=== PATIENT | male | born 1965 | race American Indian/Alaskan Native ===

== ENCOUNTER 2017-02-25 08:37 | Inpatient (IN) | payer OTHER ==
[2017-02-25] MEDS ORDERED: Morphine 4 mg/ml ISec IVP STA (09:15)
--- NOTE | 2017-02-25 09:44 | ED PDOC ---
Arrival/HPI - General Chief Complaint: Lower Extremity Problem/Injury Time Seen by Provider: 02/25/17 09:04 Historian: Patient - History of Present Illness Narrative History of Present Illness (Text): 02/25/17 09:41 51yo male with PMHx of DVT present with complaint of severe right lower leg pain with fever x 2days. Patient states that he had ab abscess on his right lateral lower leg that drained few days ago and then pain started s/p. Reports Tmax of 104 last night. states he took Tylenol last night. He feels the pain is not related to his DVT, states his pain is localized to his lin area. He is currently on Elquis. Denies trauma, SOB, chest pain, diaphoresis, any other complaint. Past Medical History - Provider Review Nursing Documentation Reviewed: Yes - Tetanus Immunization Tetanus Immunization: Unknown - Cardiac Hx Cardiac Disorders: Yes Hx Hypertension: Yes Other/Comment: b/l lower extremity blood clots - Pulmonary Hx Respiratory Disorders: Yes (pe) Hx Pulmonary Embolism: Yes - Neurological Hx Neurological Disorder: No - HEENT Hx HEENT Disorder: No - Renal Hx Renal Disorder: No - Endocrine/Metabolic Hx Endocrine Disorders: Yes - Hematological/Oncological Hx Blood Disorders: Yes (dvt in the past.,pe in past) - Integumentary Hx Dermatological Disorder: No - Musculoskeletal/Rheumatological Hx Falls: No - Gastrointestinal Hx Gastrointestinal Disorders: No - Genitourinary/Gynecological Hx Genitourinary Disorders: No - Psychiatric Hx Psychophysiologic Disorder: No Hx Depression: No Hx Emotional Abuse: No Hx Physical Abuse: No Hx Substance Use: No - Surgical History Hx Vascular Surgery: Yes - Anesthesia Hx Anesthesia Reactions: No Hx Malignant Hyperthermia: No - Suicidal Assessment Feels Threatened In Home Enviroment: No Family/Social History - Physician Review Nursing Documentation Reviewed: Yes Family/Social History: Unknown Family HX Smoking Status: Former Smoker Hx Alcohol Use: No Hx Substance Use: No Hx Substance Use Treatment: No Allergies/Home Meds Allergies/Adverse Reactions: Allergies Penicillins Allergy (Verified 02/25/17 08:59) RASH Review of Systems - Physician Review All systems were reviewed & negative as marked: Yes - Review of Systems Constitutional: Normal Eyes: Normal ENT: Normal Respiratory: Normal Cardiovascular: Normal Gastrointestinal: Normal Genitourinary Male: Normal Musculoskeletal: Arthralgias (Right lower leg pain) Skin: Normal Neurological: Normal Endocrine: Normal Hemo/Lymphatic: Normal Psychiatric: Normal Physical Exam Vital Signs Reviewed: Yes Vital Signs Temp Pulse Resp BP Pulse Ox 02/25/17 13:31 89 18 131/75 98 02/25/17 11:35 99.4 F 98 H 18 133/79 98 02/25/17 08:58 100.4 F H 109 H 18 135/87 98 Temperature: Febrile Blood Pressure: Normal Pulse: Tachycardic Respiratory Rate: Normal Appearance: Positive for: Well-Appearing, Non-Toxic, Comfortable Pain Distress: None Mental Status: Positive for: Alert and Oriented X 3 - Systems Exam Head: Present: Atraumatic, Normocephalic Pupils: Present: PERRL Extroacular Muscles: Present: EOMI Conjunctiva: Present: Normal Mouth: Present: Moist Mucous Membranes Neck: Present: Normal Range of Motion Respiratory/Chest: Present: Clear to Auscultation, Good Air Exchange. No: Respiratory Distress, Accessory Muscle Use Cardiovascular: Present: Regular Rate and Rhythm, Normal S1, S2. No: Murmurs Abdomen: Present: Normal Bowel Sounds. No: Tenderness, Distention, Peritoneal Signs Back: Present: Normal Inspection Upper Extremity: Present: Normal Inspection. No: Cyanosis, Edema Lower Extremity: Present: Edema (3+ right lower leg), Tenderness (Right lin), Erythema (Right lin), Neurovascularly Intact, Other (Statis dermatitis of right lower leg noted). No: CALF TENDERNESS, Cyanosis, Deformity Neurological: Present: GCS=15, CN II-XII Intact, Speech Normal Skin: Present: Warm, Dry, Normal Color. No: Rashes Psychiatric: Present: Alert, Oriented x 3, Normal Insight, Normal Concentration Medical Decision Making ED Course and Treatment: 02/25/17 16:16 Pt presented for stated history. His Temp and HR improved while in ED. His doppler US showed completely occluded femoral vein, although pt is on Eloquis with IVC filter in place. His INR was 1.18. He will however require admission for heparin and possible surgical evacuation. Case was OLLIE Mercado. He accepted pt into his service. All result and plan was DW the pt and he agreed. - Lab Interpretations Lab Results: 02/25/17 09:25 02/25/17 09:25 Lab Results 02/25/17 10:30: PT 12.7 H, INR 1.18 H, APTT 28.1 02/25/17 09:25: Sodium 137, Potassium 3.9, Chloride 99, Carbon Dioxide 26, Anion Gap 16, BUN 13, Creatinine 1.3, Est GFR ( Amer) > 60, Est GFR (Non- Af Amer) 59, Random Glucose 104, Calcium 9.3, Total Bilirubin 1.4 H, AST 21, ALT 18, Alkaline Phosphatase 63, Total Protein 9.6 H, Albumin 4.5, Globulin 5.1 , Albumin/Globulin Ratio 0.9 L 02/25/17 09:25: WBC 8.6 D, RBC 4.64, Hgb 14.0, Hct 40.8 L, MCV 87.9, MCH 30.2, MCHC 34.3, RDW 13.3, Plt Count 97 L, MPV 10.8, Gran % 81.2 H, Lymph % (Auto) 12.7 L, Otero % (Auto) 6.0, Eos % (Auto) 0.0 L, Baso % (Auto) 0.1, Gran # 6.94 H , Lymph # 1.1 L, Otero # 0.5, Eos # 0.0, Baso # 0.01 - RAD Interpretation Radiology Orders: 02/25/17 09:14 DUPLEX LOWER EXTRM VEIN RIGHT [US] Stat - Medication Orders Current Medication Orders: Discontinued Medications Morphine Sulfate (Morphine) 4 mg IVP STAT STA Stop: 02/25/17 09:16 Last Admin: 02/25/17 09:23 Dose: 4 mg Disposition/Present on Arrival - Present on Arrival Any Indicators Present on Arrival: No History of DVT/PE: Yes History of Uncontrolled Diabetes: No Urinary Catheter: No History of Decub. Ulcer: No History Surgical Site Infection Following: None - Disposition Have Diagnosis and Disposition been Completed?: Yes Diagnosis: Deep venous thrombosis Disposition: HOSPITALIZED Disposition Time: 11:45 Patient Problems: Current Active Problems Problem Status Onset Deep venous thrombosis Acute Condition: GUARDED
[2017-02-25 09:59] LABS: ADD MANUAL DIFF? NO
[2017-02-25 10:00] LABS: BASO # 0.01 K/mm3 (0.0-2.0); BASO % 0.1 % (0.0-3.0); GRAN # 6.94 (1.4-6.5); GRAN % 81.2 % (50.0-68.0); HEMATOCRIT 40.8 % (42.0-52.0); LYMPH # 1.1 (1.2-3.4); LYMPH % 12.7 % (22.0-35.0); MEAN CELL VOLUME 87.9 fL (80.0-105.0); MEAN CORPUSCULAR HEMOGLOBIN 30.2 pg (25.0-35.0); MEAN CORPUSCULAR HGB CONC 34.3 g/dl (31.0-37.0); MEAN PLATELET VOLUME 10.8 fl (7.0-11.0); MONO # 0.5 (0.1-0.6); PLATELET COUNT 97 10^3/uL (120.0-450.0); RED CELL DISTRIBUTION WIDTH 13.3 % (11.5-14.5); WHITE BLOOD COUNT 8.6 10^3/ul (4.5-11.0)
[2017-02-25 10:14] LABS: ALB/GLOB RATIO 0.9 (1.1-1.8); ALKALINE PHOSPHATASE 63 U/L (38-133); ALT/SGPT 18 U/L (7-56); AST/SGOT 21 U/L (15-59); BILIRUBIN,TOTAL 1.4 mg/dL (0.2-1.3); BLOOD UREA NITROGEN 13 mg/dL (7-21); CALCIUM 9.3 mg/dL (8.4-10.5); CARBON DIOXIDE 26 mmol/L (21-33); CHLORIDE 99 mmol/L (98-107); GFR AFRICAN-AMERICAN > 60; GLUCOSE,RANDOM 104 mg/dL (70-110); POTASSIUM 3.9 mmol/L (3.6-5.0); SODIUM 137 mmol/L (132-148); TOTAL PROTEIN 9.6 g/dL (5.8-8.3)
[2017-02-25 11:08] LABS: INR 1.18 (0.93-1.08); PARTIAL THROMBOPLASTIN TIME 28.1 Seconds (23.7-30.8)
--- NOTE | 2017-02-25 11:25 | US ---
PROCEDURE: Right lower extremity venous US HISTORY: Leg pain and swelling. Evaluate for DVT. PHYSICIAN(S): Kenji Oliveira M.D. TECHNIQUE: Duplex sonography and color-flow Doppler with graded compression were used to evaluate the deep venous system of the right lower extremity. FINDINGS: There is adherent thrombus in the right common femoral vein. Occlusive thrombus is noted throughout the right femoral vein. There is adherent thrombus in the right popliteal vein. The visualized distal right external iliac vein is patent. IMPRESSION: 1. Extensive right lower extremity DVT as described above.
[2017-02-25 17:41] VITALS: BMI 32.0
[2017-02-25] MEDS ORDERED: Vancomycin 1gm in NS 250ml 1 GM/250 ML BAG IVPB STA (18:35)
[2017-02-25] MEDS: Enoxaparin 120 mg Syringe SC SCH (18:54)
[2017-02-25] MEDS: Sodium Chloride 0.9% 1,000 ML IV SCH (19:35)
[2017-02-25] MEDS: Morphine 2 mg/ml ISec IVP PRN (19:46)
--- NOTE | 2017-02-25 19:50 | CP.PCM.CON ---
History of Present Illness - History of Present Illness History of Present Illness: 51 M w/ PMHx pulmonary embolism, lupus anticoagulant, DVT, presents to the ED w / complaints of fevers and right lower extremity pain. Patient reports one week ago he noticed a "small pimple" on the side of his right leg, three days later it came into a head. Patient states abscess spontaneously ruptured when he was taking a hot shower. He reports taking his temperature at home with recordings of 104F (Tmax). Patient states he took Tylenol for the fever which brought his temperature down to about 102, after noticing his fevers were not improving and his leg becoming edematous the patient decided to come to ED. A lower extremity ultrasound was done which demonstrated an adherent thrombus in the right common femoral vein and occlusive thrombus in the right femoral vein as well as an adherent thrombus in the right popliteal vein. Patient's anterior tibial region was exquisitely tender to palpation, no crepitus appreciated. Patient's dorsalis pedis and posterior tibialis pulses are palpable. Motor/ sensory function intact. Currently patient denies any chest pain/SOB, headache/ dizziness, n/v/d, abdominal pain, dysuria. PMHx: as stated above PSurgHx: IVC filter Soc Hx: denies smoking, EtOH use, illicit drug use Review of Systems - Review of Systems Review of Systems: 12 pt ROS reviewed unremarkable, except as stated in HPI Past Patient History - Tetanus Immunizations Tetanus Immunization: Unknown - Past Medical History & Family History Past Medical History?: Yes - Past Social History Smoking Status: Former Smoker - CARDIAC Hx Cardiac Disorders: Yes Hx Hypertension: Yes Hx Peripheral Edema: Yes (rle +2 pitting eema) Other/Comment: b/l lower extremity blood clots and b/l pe, had filter inserted 10 yrs ago, recurrent blood clots since age 41. Pt stated "Dr Oliveira told me I have lupus anticoagulant" - PULMONARY Hx Respiratory Disorders: Yes (pe b/l) - NEUROLOGICAL Hx Neurological Disorder: No - HEENT Hx HEENT Problems: No - RENAL Hx Chronic Kidney Disease: No - ENDOCRINE/METABOLIC Hx Endocrine Disorders: Yes - HEMATOLOGICAL/ONCOLOGICAL Hx Blood Disorders: Yes (dvt in the past.,pe in past) - INTEGUMENTARY Hx Dermatological Problems: No Other/Comment: boil to outer lower right extremityextremely sensitive to touch asked not to remove bandaid to assess due to pain pt escribes it as as big as a 50 cent piece started out a pimple with drainage and depth, 2cm x 1cm open draining wound to outer lower right leg surrouonded by edematous dry skin extremely sensitive to touch it was abcessed 2 wks ago started to heal now opened again due to swelling skin warm to touch +2 edema pitting, stasis dermatitis rle - MUSCULOSKELETAL/RHEUMATOLOGICAL Hx Falls: No - GASTROINTESTINAL Hx Gastrointestinal Disorders: No - GENITOURINARY/GYNECOLOGICAL Hx Genitourinary Disorders: No - PSYCHIATRIC Hx Substance Use: No - SURGICAL HISTORY Hx Surgeries: Yes Other/Comment: insertion and removal of stents/filter ble. umbilical and left inguinal hernia sx 1997, vascular sx - ANESTHESIA Hx Anesthesia Reactions: No Hx Malignant Hyperthermia: No Meds Allergies/Adverse Reactions: Allergies Allergy/AdvReac Type Severity Reaction Status Date / Time Penicillins Allergy RASH Verified 02/25/17 08:59 - Medications Medications: Current Medications Acetaminophen (Tylenol 325mg Tab) 650 mg PO Q6H PRN PRN Reason: Fever >100.4 F Last Admin: 02/25/17 19:35 Dose: 650 mg Enoxaparin Sodium (Lovenox) 110 mg SC Q12H RASHMI PRN Reason: Protocol Last Admin: 02/25/17 18:54 Dose: 110 mg Vancomycin HCl (Vancomycin 1gm) 1 gm in 250 mls @ 167 mls/hr IVPB STAT STA PRN Reason: Protocol Stop: 02/25/17 20:04 Last Admin: 02/25/17 18:55 Dose: 167 mls/hr Aztreonam (Azactam 1 Gm) 100 mls @ 100 mls/hr IVPB Q8 RASHMI PRN Reason: Protocol Stop: 03/04/17 22:01 Metronidazole (Flagyl) 500 mg in 100 mls @ 100 mls/hr IVPB Q8 RASHMI PRN Reason: Protocol Sodium Chloride (Sodium Chloride 0.9%) 1,000 mls @ 100 mls/hr IV .Q10H [facility] Last Admin: 02/25/17 19:35 Dose: 100 mls/hr Morphine Sulfate (Morphine) 2 mg IVP Q4H PRN PRN Reason: Pain, moderate (4-7) Pantoprazole Sodium (Protonix Inj) 40 mg IVP DAILY RASHMI Physical Exam - Constitutional Appears: No Acute Distress - Head Exam Head Exam: NORMOCEPHALIC - Eye Exam Eye Exam: Normal appearance - ENT Exam ENT Exam: Mucous Membranes Moist - Respiratory Exam Respiratory Exam: NORMAL BREATHING PATTERN. absent: Accessory Muscle Use, Rales , Rhonchi, Wheezes - Cardiovascular Exam Cardiovascular Exam: Tachycardia, +S1, +S2 - GI/Abdominal Exam GI & Abdominal Exam: Soft - Extremities Exam Extremities exam: Positive for: tenderness, pedal pulses present Additional comments: Right lower extremity is markedly edematous Exquisitely tender along anterior tibial compartment Palpable dorsal pedis and posterior tibial pulses Motor & sensation intact Actively draining abscess in lateral RLE Warm to touch - Neurological Exam Neurological exam: Alert, Oriented x3 Additional comments: unable to bear weight on R foot - Psychiatric Exam Psychiatric exam: Normal Mood - Skin Skin Exam: Warm Results - Vital Signs Recent Vital Signs: Last Vital Signs Temp 102.5 F H 02/25/17 19:35 Pulse 89 02/25/17 17:28 Resp 18 02/25/17 17:28 BP 131/75 02/25/17 17:28 Pulse Ox 99 02/25/17 16:00 - Labs Result Diagrams: 02/25/17 09:25 02/25/17 09:25 Assessment & Plan - Assessment and Plan (Free Text) Assessment: 51M w/ right lower extremity DVT and right lower extremity abscess(draining)/ cellulitis -CT scan of RLE -C/w Abx per ID -C/w anti-coagulation tx for DVT -F/u wound cultures -F/u blood cultures -Tylenol Q6H prn fever>100.4 -Analgesic -Further recs per Dr. Umanzor
[2017-02-25] MEDS: Aztreonam 1 Gm in NS 100mL 100 ML IVPB SCH (21:19)
[2017-02-25] MEDS: metroNIDAZOLE IV 500 mg/100 ml 500 MG/100 ML BAG IVPB SCH (22:25)
--- NOTE | 2017-02-26 02:04 | CON ---
DATE: 02/25/2017 REASON FOR CONSULTATION: Extensive deep venous thrombosis in right lower extremity, hypercoagulable state. HISTORY OF PRESENT ILLNESS: The patient is a 50-year-old male well known to me from the office. He developed an extensive DVT in bilateral lower extremities 9 years ago. He was on Coumadin until last year. He also had a IVC filter. He presented last year with right lower extremity cellulitis and bilateral lower -extremity deep venous thrombosis. He also had acute DVT with a baseline chronic DVT. Coumadin resistance was suspected and he was switched to Eliquis, which he maintains that he takes regularly 5 mg p.o. b.i.d. He developed swelling of the right lower extremity and pus discharge from the right lower extremity from a small blister. He is unable to walk. He also had a high- grade fever of 104 at home with chills and rigors. Ultrasound of the the right lower extremity showed occlusive DVT in the common femoral vein and throughout the right femoral vein; occlusive DVT throughout the right femoral vein and right popliteal vein. Currently he is running a temperature of 104. Lupus screening was positive and he was referred to a client operations manager for further evaluation and workup. PAST MEDICAL HISTORY: Bilateral pulmonary embolism 9 years ago, history of bilateral lower extremity deep venous thromboses, IVC filter. PERSONAL HISTORY: Former smoker. No history of alcohol abuse. SOCIAL HISTORY: Lives at home with . PAST SURGICAL HISTORY: IVC filter placement. ALLERGIES: PENICILLIN CAUSES RASH. HOME MEDICATIONS: Eliquis 5 mg p.o. b.i.d., B complex. REVIEW OF SYSTEMS: As per HPI. The rest of a 12-point review of systems reviewed and negative. PHYSICAL EXAMINATION: GENERAL: In mild distress due to fever. VITAL SIGNS: Temperature 104, blood pressure 130/80, pulse ox is 98% room air, heart rate is 83 per minute, temperature 98.6. HEENT: Normal. Oral mucosa: Dry. CHEST: Air entry present, equal bilateral, no added sound. CARDIOVASCULAR: S1, S2 normal, tachycardia present. ABDOMEN: Soft, nontender, no hepatosplenomegaly. EXTREMITIES: Right lower extremity swollen, very tense, temperature increased. Peripheral pulsations present. Right lower extremity tender to touch. Skin no rash, no petechie, right leg as above. BALANCE BRIDGE ASSEMBLER : alert, oriented x3, no focal sensory, motor deficit. Lymphadenopathy - none. LABORATORY DATA: White count 3000, hemoglobin 14, hematocrit 40.8, platelet count 70,000. Sodium 138, potassium 4.2, BUN 17, creatinine 1.1, glucose 87. Doppler as under HPI. ASSESSMENT AND PLAN: 1. Hypercoagulable state. 2. Extensive deep venous thrombosis, lower extremity, persistent, acute-on- chronic. On full anticoagulation with Eliquis 5 mg p.o. b.i.d. Hold eliquis. He developed progression on eliquis. We will start Lovenox 110 mg q. 12 hours 1 dose stat, IV antibiotics; vancomycin 1 gram stat, aztreonam 1 gram q. 8 hours IV, and Flagyl 500 mg IV q. [address] Olsen, infectious disease specialist. 3. Right lower extremity cellulitis/abscess. Surgery consulted, discussed with Dr. Umanzor. Rule out compartment syndrome maybe abscess, possible drainage. CT scan of the right lower extremity ordered. 4. High-grade fever. We will start IV fluid normal saline at 100 mL an hour. 5. Pain, right lower extremity. Morphine 2 mg IV q. 4 hours p.r.n. for pain, Tylenol 650 q. 6 hours p.r.n. for fever. Discussed with the patient, discussed with the staff nurse, discussed with Dr. Mercado, discussed with Dr. Olsen from OR. A vascular consult with Dr. Lynette Almodovar requested for extensive right lower extremity DVT, discussed with Dr. Vallejo. Randa Bustos MD cc: [id number] TT: 02/26/2017 01:58:21 Confirmation # [id number] Dictation # [id number] [id number]
[2017-02-26] MEDS: Aztreonam 1 Gm in NS 100mL 100 ML IVPB SCH ×3 (05:10→22:04)
[2017-02-26] MEDS: Enoxaparin 120 mg Syringe SC SCH ×2 (05:55→17:52)
[2017-02-26] MEDS: metroNIDAZOLE IV 500 mg/100 ml 500 MG/100 ML BAG IVPB SCH ×3 (05:56→21:07)
[2017-02-26] MEDS: Sodium Chloride 0.9% 1,000 ML IV SCH ×2 (06:02→16:09)
--- NOTE | 2017-02-26 07:24 | CP.PCM.PN ---
Subjective - Date & Time of Evaluation Date of Evaluation: 02/26/17 Time of Evaluation: 06:45 - Subjective Subjective: General Surgery Dr. Umanzor Pt S&E @bedside. NAEO. no complaints. admits to leg swelling and drainage overnight. denies F/C, N/V, D/C. tolerating diet. Objective - Vital Signs/Intake and Output Vital Signs (last 24 hours): Temp Pulse Resp BP Pulse Ox 100.4 F H 89 18 131/75 99 02/26/17 06:20 02/25/17 17:28 02/25/17 17:28 02/25/17 17:28 02/25/17 16:00 Intake and Output: 02/26/17 02/26/17 06:59 18:59 Intake Total 1520 0 Output Total 400 300 Balance 1120 -300 - Medications Medications: Current Medications Acetaminophen (Tylenol 325mg Tab) 650 mg PO Q6H PRN PRN Reason: Fever >100.4 F Last Admin: 02/26/17 06:20 Dose: 650 mg Enoxaparin Sodium (Lovenox) 110 mg SC Q12H RASHMI PRN Reason: Protocol Last Admin: 02/26/17 05:55 Dose: 110 mg Aztreonam (Azactam 1 Gm) 100 mls @ 100 mls/hr IVPB Q8 RASHMI PRN Reason: Protocol Stop: 03/04/17 22:01 Last Admin: 02/26/17 05:10 Dose: 100 mls/hr Metronidazole (Flagyl) 500 mg in 100 mls @ 100 mls/hr IVPB Q8 RASHMI PRN Reason: Protocol Last Admin: 02/26/17 05:56 Dose: 100 mls/hr Sodium Chloride (Sodium Chloride 0.9%) 1,000 mls @ 100 mls/hr IV .Q10H RASHMI Last Admin: 02/26/17 06:02 Dose: Not Given Morphine Sulfate (Morphine) 2 mg IVP Q4H PRN PRN Reason: Pain, moderate (4-7) Last Admin: 02/25/17 19:46 Dose: 2 mg Pantoprazole Sodium (Protonix Inj) 40 mg IVP DAILY RASHMI - Labs Labs: PT 12.7 Seconds (9.9-11.8) H 02/25/17 10:30 INR 1.18 (0.93-1.08) H 02/25/17 10:30 APTT 28.1 Seconds (23.7-30.8) 02/25/17 10:30 - Constitutional Appears: Non-toxic, In Acute Distress - Head Exam Head Exam: NORMAL INSPECTION - Eye Exam Eye Exam: Normal appearance - ENT Exam ENT Exam: Mucous Membranes Moist - Respiratory Exam Respiratory Exam: NORMAL BREATHING PATTERN. absent: Accessory Muscle Use, Respiratory Distress - Cardiovascular Exam Cardiovascular Exam: REGULAR RHYTHM - GI/Abdominal Exam GI & Abdominal Exam: Soft. absent: Distended - Extremities Exam Additional comments: Actively draining abscess in lateral RLE RLE (+) edema, erythema, warm (+)TTP no pain w/ passive/active mvt - Neurological Exam Neurological Exam: Alert, Awake, Oriented x3 - Psychiatric Exam Psychiatric exam: Normal Affect, Normal Mood - Skin Additional comments: see extremity Assessment and Plan - Assessment and Plan (Free Text) Assessment: 51 y/o M w/ RLE sponteneously draining abscess and cellulitis - cont IV Abx - f/u CT - Santyl BID - Dago wraps for DVT - cont medical management Pt discussed w/ Dr. Noé Chirinos DO PGY1
[2017-02-26 10:57] LABS: ALB/GLOB RATIO 0.8 (1.1-1.8); ALKALINE PHOSPHATASE 51 U/L (38-133); ALT/SGPT 21 U/L (7-56); AST/SGOT 20 U/L (15-59); BILIRUBIN,TOTAL 1.3 mg/dL (0.2-1.3); BLOOD UREA NITROGEN 14 mg/dL (7-21); CALCIUM 8.6 mg/dL (8.4-10.5); CARBON DIOXIDE 25 mmol/L (21-33); CHLORIDE 100 mmol/L (98-107); GFR AFRICAN-AMERICAN > 60; GLUCOSE,RANDOM 107 mg/dL (70-110); POTASSIUM 3.8 mmol/L (3.6-5.0); SODIUM 134 mmol/L (132-148); TOTAL PROTEIN 8.4 g/dL (5.8-8.3)
--- NOTE | 2017-02-26 12:03 | HP ---
CHIEF COMPLAINT AND HISTORY OF PRESENT ILLNESS: This is a 51-year-old male who is coming in to the [facility] because of a blister that he found on the right leg. He also was complaining of significant pain that is 10/10. The patient has a history of DVT and has been on anticoagulation. He says that the pain in his right leg was significant and so he came in for further evaluation. He had a DVT matt t was diagnosed about 9 years ago. He had been taking his anticoagulation with Eliquis. The patient says he is having difficulty walking. He had a fever of 104. He was having chills. He has no comp laints of any abdominal pain or back pain, no dysuria or frequency, no weakness in the arms or the le gs. He follows with Dr. Bustos who is his grinder hardboard. ALLERGIES: PENICILLIN. HOME MEDICATIONS: Eliquis. SOCIAL HISTORY: He is a former smoker. He does not drink or use drugs. PAST SURGICAL HISTORY: An IVC filter. PAST MEDICAL HISTORY: Bilateral pulmonary embolisms, deep venous thrombosis with inferior vena cava filter. PHYSICAL EXAMINATION: VITAL SIGNS: The patient has a temperature of 102.5, BP is 100.4, he has a pulse of 101, blood press ure 116/72, respirations 18, height is 6 feet 2, weight is 249 pounds, BMI is . GENERAL: Patient lying in bed, flat, and in no apparent distress. HEAD AND NECK EXAM: Atraumatic, normocephalic. Conjunctivae are pink. Throat clear and mouth with moist mucosa. Oropharynx benign. EYES: Extraocular movements are intact. PERRLA. NECK: Supple. No JVD, thyromegaly, or adenopathy. No bruits. HEART: S1 and S2 regular rate and rhythm. No murmurs, rubs, or gallops. LUNGS: Clear to auscultation bilaterally. No wheezing rales or rhonchi appreciated. No retraction s on exam. ABDOMEN: Soft, nontender, nondistended. Bowel sounds are positive in all quadrants. No rebound. No hepatosplenomegaly. EXTREMITIES: No cyanosis, clubbing, or edema. Right lower leg is covered with dressing, was not a ble to open up the dressing. NEURO: No facial asymmetry, tongue is midline, no uvula deviation. Power is 5/5 in upper extremity and 5/5 in lower extremity. Sensation is normal in upper extremity and lower extremity. PSYCH: Awake, alert, oriented x3. No anxiety or depression symptoms. Good insight. Normal affec t. : No CVA tenderness VASCULAR: 2+ pulses in carotid and pedal pulses. SKIN: No erythema or abnormal nodules noted. SPINE: Normal curvature. LYMPHADENOPATHY: No anterior cervical or posterior cervical adenopathy. No inguinal adenopathy. LABORATORY DATA: White count of 8.6, hemoglobin is 14. INR is 1.1. Sodium is 137, potassium is 3.9 , creatinine is 1.3. Lower extremity CT is pending. There is a right leg Doppler that shows extensive right lower extremi ty DVT. ASSESSMENT: 1. Sepsis. 2. Right leg blister. 3. Deep venous thrombosis. PLAN: The patient is going to be admitted to the hospital. His blood cultures and wound cultures taylor ve been ordered. He is going to be seen by surgery as well as infectious disease. The patient is go ing to be started on Lovenox. He is going to be on Protonix. The patient is on Zofran as needed for nausea. We will continue to follow closely. Luis Mercado MD cc: [id number] TT: 02/26/2017 12:03:08 leann
--- NOTE | 2017-02-26 14:01 | CT ---
PROCEDURE: CT of the right lower extremity without contrast HISTORY: RLE abscess, r/o necrotizing fasciitis COMPARISON: TECHNIQUE: CT of the right lower extremity was performed in the axial plane with sagittal and coronal reconstructions. FINDINGS: There is a large amount of subcutaneous edema which may represent cellulitis. There is no evidence of gas in the soft tissues to suggest a gas forming infection. There are no bony abnormalities. There is no evidence of abscess. The report concurs with the preliminary [facility] report IMPRESSION: Cellulitis. No evidence of gas-forming infection
[2017-02-26] MEDS: Morphine 2 mg/ml ISec IVP PRN (17:00)
--- NOTE | 2017-02-26 18:49 | CON ---
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 HISTORY OF PRESENT ILLNESS: The patient is a 51-year-old man who was well until 9 years ago when he presented with the first of multiple episodes of deep venous thrombosis. At that time, he was treated with anticoagulation and an IVC filter was placed. Hypercoagulable workup is positive for antiphospholipid antibody. Since then has been followed by yardage caller and his primary care doctor. He had a complication of caval and bilateral femoral thrombosis including swelling, periodically exacerbation with acute DVT on chronic DVT requiring hospitalization. Initially, he was placed on Coumadin, but he was admitted last year for possibly Coumadin resistance and he was placed on Eliquis 5 mg p.o. b.i.d. then. He was doing well until this past Friday when he experienced increase in right lower extremity pain, bullae on the left lateral surface of his right leg. Subsequent to that, he developed lin pain and fever to 104. He was admitted here for IV antibiotics and further evaluation. 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 He had been compliant with knee high supports stockings. PAST MEDICAL HISTORY: Ex-smoker, pulmonary embolism 9 years ago. SOCIAL HISTORY: Lives at home with and has 8 kids. ALLERGIES: PENICILLIN. HOME MEDICATIONS: Eliquis. REVIEW OF SYSTEMS: Just as in the history of present illness. PHYSICAL EXAMINATION: GENERAL: Shows a black male in moderate distress. HEENT: Negative. CHEST: Clear. ABDOMEN: Soft. EXTREMITIES: Examination of the lower extremities reveal that the right leg pain larger than the left. There are bilateral palpable pulses. The right leg is tender at the lin area, as well as an ulcer, 1 cm ulcer, over the lateral compartment area. LABORATORY DATA: WBC count is 8.6. Hemoglobin is 14. Electrolytes within normal limits. He had undergone a CAT scan of the leg. The result of that is pending. IMPRESSION: Chronic deep venous thrombosis with exacerbation and cellulitis. We will review the CT scan with the radiologist. Osteomyelitis has to be ruled out due to the lin pain, but other than that, he should be continued on his present regimen of antibiotic and anticoagulation. Lynette Almodovar MD cc: [phone] TT: 02/26/2017 18:48:32 Confirmation # [id number] Dictation # [id number] evette FARLEY
--- NOTE | 2017-02-26 22:56 | CP.PCM.CON ---
History of Present Illness - History of Present Illness History of Present Illness: 51 year old male with PMH of DVT and PE S/P IVC filter placement, obesity with BMI 32 previously came in complaining of right lower leg pain for the past 2-3 days. He states that he had a boil on the leg about 4-5 days ago which drained spontaneously 2 days ago. He denies animal contacts, no known trauma to the foot , patient had fever but no chills, no nausea or vomiting, no SOB, no cough or colds, no headache or dizziness, no dysuria, no diarrhea, no sore throat, no dysphagia. In the ED, ultrasound of the leg showed acute DVT. Infectious Diseases consult is requested to further evaluate and manage. Review of Systems - Review of Systems All systems: reviewed and no additional remarkable complaints except (as per HPI ) Past Patient History - Tetanus Immunizations Tetanus Immunization: Unknown - Past Medical History & Family History Past Medical History?: Yes - Past Social History Smoking Status: Former Smoker - CARDIAC Hx Cardiac Disorders: Yes Hx Hypertension: Yes Hx Peripheral Edema: Yes (rle +2 pitting eema) Other/Comment: b/l lower extremity blood clots and b/l pe, had filter inserted 10 yrs ago, recurrent blood clots since age 41. Pt stated "Dr Oliveira told me I have lupus anticoagulant" - PULMONARY Hx Respiratory Disorders: Yes (pe b/l) - NEUROLOGICAL Hx Neurological Disorder: No - HEENT Hx HEENT Problems: No - RENAL Hx Chronic Kidney Disease: No - ENDOCRINE/METABOLIC Hx Endocrine Disorders: Yes - HEMATOLOGICAL/ONCOLOGICAL Hx Blood Disorders: Yes (dvt in the past.,pe in past) - INTEGUMENTARY Hx Dermatological Problems: No Other/Comment: boil to outer lower right extremityextremely sensitive to touch asked not to remove bandaid to assess due to pain pt escribes it as as big as a 50 cent piece started out a pimple with drainage and depth, 2cm x 1cm open draining wound to outer lower right leg surrouonded by edematous dry skin extremely sensitive to touch it was abcessed 2 wks ago started to heal now opened again due to swelling skin warm to touch +2 edema pitting, stasis dermatitis rle - MUSCULOSKELETAL/RHEUMATOLOGICAL Hx Falls: No - GASTROINTESTINAL Hx Gastrointestinal Disorders: No - GENITOURINARY/GYNECOLOGICAL Hx Genitourinary Disorders: No - PSYCHIATRIC Hx Substance Use: No - SURGICAL HISTORY Hx Surgeries: Yes Other/Comment: insertion and removal of stents/filter ble. umbilical and left inguinal hernia sx 1998, vascular sx - ANESTHESIA Hx Anesthesia Reactions: No Hx Malignant Hyperthermia: No Meds Allergies/Adverse Reactions: Allergies Allergy/AdvReac Type Severity Reaction Status Date / Time Penicillins Allergy RASH Verified 02/25/17 08:59 - Medications Medications: Current Medications Enoxaparin Sodium (Lovenox) 110 mg SC Q12H RASHMI PRN Reason: Protocol Vancomycin HCl (Vancomycin 1gm) 1 gm in 250 mls @ 167 mls/hr IVPB STAT STA PRN Reason: Protocol Stop: 02/25/17 20:04 Physical Exam - Constitutional Appears: Non-toxic, No Acute Distress - Head Exam Head Exam: NORMAL INSPECTION - ENT Exam ENT Exam: Mucous Membranes Moist - Neck Exam Neck exam: Negative for: Lymphadenopathy, Meningismus - Respiratory Exam Respiratory Exam: Decreased Breath Sounds - Cardiovascular Exam Cardiovascular Exam: +S1, +S2 - GI/Abdominal Exam GI & Abdominal Exam: Soft. absent: Tenderness - Extremities Exam Additional comments: right leg with bandages in place Results - Vital Signs Recent Vital Signs: Last Vital Signs Temp 99.4 F 02/25/17 17:28 Pulse 89 02/25/17 17:28 Resp 18 02/25/17 17:28 BP 131/75 02/25/17 17:28 Pulse Ox 99 02/25/17 16:00 - Labs Result Diagrams: 02/25/17 09:25 02/26/17 10:41 Assessment & Plan - Assessment and Plan (Free Text) Plan: Assessment right lower extremity with cellulitis and acute DVT DVT and PE S/P IVC filter placement obesity with BMI 32 Plan gave a dose of IV Vancomycin, started Azactam and flagyl pending blood cx; reviewed CT leg patient started on anticoagulation; follow up vascular surgery recommendations Will monitor clinically
--- NOTE | 2017-02-27 18:53 | PN ---
DATE: 02/27/2017 Room 368, bed 1. The patient was seen earlier this morning. SUBJECTIVE: The patient is feeling better, less pain in the right leg. No fevers overnight. No josé sea. OBJECTIVE: VITAL SIGNS: The patient is afebrile, heart rate is 88, respiratory rate is 16. HEAD AND NECK: Normocephalic, atraumatic. CHEST: Decreased breath sounds bilaterally. No rales. HEART: S1 and S2 are normal. ABDOMEN: Soft, nontender, nondistended. EXTREMITIES: The right leg with bandages in place. LABORATORY DATA: Unfortunately, I am unable to review the labs because the computer systems are down . ASSESSMENT: We have a 51-year-old male presenting with acute deep venous thrombosis on the right leg as well as right lower extremity cellulitis or skin and skin structure infection. PLAN: We will continue the patient on vancomycin, Azactam and Flagyl. Today is day #2. Pending fi nal blood culture results. We are also awaiting surgery's or podiatry re-evaluation of the leg. The patient continues to be on anticoagulation and we will continue to follow the patient clinically. Morro Olsen M.D. cc: [id number] TT: 02/27/2017 18:53:12 Confirmation # [id number] Dictation # [id number] jose
[2017-02-27] MEDS: Aztreonam 1 Gm in NS 100mL 100 ML IVPB SCH (21:38)
[2017-02-27] MEDS: Sodium Chloride 0.9% 1,000 ML IV SCH (21:40)
[2017-02-27] MEDS: metroNIDAZOLE IV 500 mg/100 ml 500 MG/100 ML BAG IVPB SCH (23:04)
[2017-02-28] MEDS ORDERED: Benzocaine/Menthol (Cepacol) Lozenge MT PRN (00:56)
--- NOTE | 2017-02-28 00:56 | CP.PCM.PN ---
Subjective - Date & Time of Evaluation Date of Evaluation: 02/28/17 Time of Evaluation: 00:56 - Subjective Subjective: Patient was seen at bedside. He complained of clogged throat.Denies any sore throat.States that he has cold , dry cough, feels congested. Needs something to help him. Has no other complaints. Denies sob, chest pain, fever, chills. Medical record was reviewed. This 51 year old male was admitted for right leg blister, sepsis. DVT. Has PMH of DVT, pulmonary embolism, lupus anticoagulant , on anticoagulation, IVC filter. Objective - Vital Signs/Intake and Output Vital Signs (last 24 hours): Temp Pulse Resp BP Pulse Ox 100.5 F H 84 20 149/99 H 96 02/28/17 00:04 02/28/17 00:00 02/28/17 00:00 02/28/17 00:00 02/28/17 00:00 Intake and Output: 02/27/17 02/28/17 18:59 06:59 Intake Total 1020 Output Total 1300 Balance -280 - Medications Medications: Current Medications Acetaminophen (Tylenol 325mg Tab) 650 mg PO Q4H PRN PRN Reason: t > 100.4 Last Admin: 02/28/17 00:04 Dose: 650 mg Acetaminophen (Tylenol 325mg Tab) 650 mg PO Q4H PRN PRN Reason: Headache Enoxaparin Sodium (Lovenox) 110 mg SC Q12H RASHMI PRN Reason: Protocol Last Admin: 02/26/17 17:52 Dose: 110 mg Aztreonam (Azactam 1 Gm) 100 mls @ 100 mls/hr IVPB Q8 RASHMI PRN Reason: Protocol Stop: 03/04/17 22:01 Last Admin: 02/27/17 21:38 Dose: 100 mls/hr Metronidazole (Flagyl) 500 mg in 100 mls @ 100 mls/hr IVPB Q8 RASHMI PRN Reason: Protocol Last Admin: 02/27/17 23:04 Dose: 100 mls/hr Sodium Chloride (Sodium Chloride 0.9%) 1,000 mls @ 100 mls/hr IV .Q10H RASHMI Last Admin: 02/27/17 21:40 Dose: 100 mls/hr Doxycycline Hyclate 100 mg/ (Sodium Chloride) 100 mls @ 100 mls/hr IVPB Q12 RASHMI PRN Reason: Protocol Last Admin: 02/28/17 00:15 Dose: 100 mls/hr Morphine Sulfate (Morphine) 2 mg IVP Q4H PRN PRN Reason: Pain, moderate (4-7) Last Admin: 02/26/17 17:00 Dose: 2 mg Ondansetron HCl (Zofran Inj) 4 mg IVP Q4H PRN PRN Reason: Nausea/Vomiting Stop: 03/03/17 10:01 Last Admin: 02/26/17 13:41 Dose: 4 mg - Labs Labs: 02/26/17 10:41 PT 12.7 Seconds (9.9-11.8) H 02/25/17 10:30 INR 1.18 (0.93-1.08) H 02/25/17 10:30 APTT 28.1 Seconds (23.7-30.8) 02/25/17 10:30 - Constitutional Appears: Well, No Acute Distress - Head Exam Head Exam: ATRAUMATIC, NORMOCEPHALIC - Eye Exam Eye Exam: Normal appearance - ENT Exam ENT Exam: Mucous Membranes Moist, Normal Exam, Normal Oropharynx - Neck Exam Neck Exam: Normal Inspection - Respiratory Exam Respiratory Exam: NORMAL BREATHING PATTERN - Cardiovascular Exam Cardiovascular Exam: absent: JVD - GI/Abdominal Exam GI & Abdominal Exam: absent: Distended - Rectal Exam Rectal Exam: Deferred - Extremities Exam Extremities Exam: Normal Inspection - Back Exam Back Exam: NORMAL INSPECTION - Neurological Exam Neurological Exam: Alert, Oriented x3 - Psychiatric Exam Psychiatric exam: Normal Affect, Normal Mood - Skin Skin Exam: Normal Color Assessment and Plan - Assessment and Plan (Free Text) Assessment: A/P:Throat congestion/clogging. Cough. Hx DVT Hx pulmonary embolism. Hx IVC filter palcement. Sepsis. Cepacol lozenges prn.
[2017-02-28] MEDS ORDERED: Benzocaine/Menthol (Cepacol) Lozenge ONE (01:38)
[2017-02-28] MEDS: Aztreonam 1 Gm in NS 100mL 100 ML IVPB SCH ×3 (05:21→21:47)
[2017-02-28] MEDS: Enoxaparin 120 mg Syringe SC SCH ×2 (05:30→17:35)
[2017-02-28] MEDS: metroNIDAZOLE IV 500 mg/100 ml 500 MG/100 ML BAG IVPB SCH ×3 (06:41→21:47)
--- NOTE | 2017-02-28 08:27 | PN ---
DATE: 02/28/2017 SUBJECTIVE: The patient has no complaints of any chest pain. No shortness of breath. No headaches or dizziness. PHYSICAL EXAMINATION: VITAL SIGNS: Temperature is 100.5, pulse of 84, blood pressure 149/99, respirations 20. GENERAL: The patient comfortable, in no acute distress. HEENT: Anicteric sclerae. Moist mucosa. NECK: No JVD or adenopathy. CARDIAC: S1/S2. No murmurs. No rubs. Regular. RESPIRATORY: Clear to auscultation bilaterally. No wheezes, rales, or rhonchi. Good air entry. ABDOMEN: Bowel sounds are positive, soft, nontender, and nondistended. EXTREMITIES: No edema. Has 1+ pulses. LABORATORY DATA: White count of 8.6, hemoglobin is 14, creatinine is 1.2. ASSESSMENT: 1. Sepsis. 2. Left leg blister. 3. Deep venous thrombosis of the right leg. 4. History of pulmonary embolism, status post inferior cava filter. 5. PENICILLIN ALLERGY. PLAN: The patient says she is having pain in his throat. He was given several cold lozenges. The pa glenroy is being followed by infectious disease and by vascular surgery. The lower extremity CT shows cellulitis, no evidence of gas forming infection. The patient has wound cultures that show gram-posi tive cocci. The patient is on Flagyl and doxycycline, as well as Azactam because has a PENICILLIN AL LERGY. Luis Mercado MD cc: [phone] TT: 02/28/2017 08:25:15 Confirmation # [id number] Dictation # [id number] jose
--- NOTE | 2017-02-28 08:40 | PN ---
DATE: 02/28/2017 SUBJECTIVE: This is late discharge from yesterday, 02/27/2017, because the Hospital's computer system s were down. The patient was having fevers the night before. His fever has improved overnight. He has no complaints of any chest pain. No shortness of breath. PHYSICAL EXAMINATION: VITAL SIGNS: Temperature of 100.5, pulse of 80, blood pressure 140/85. GENERAL: The patient comfortable, in no acute distress. HEENT: Anicteric sclerae. Moist mucosa. NECK: No JVD or adenopathy. CARDIAC: S1/S2. No murmurs. No rubs. Regular. RESPIRATORY: Clear to auscultation bilaterally. No wheezes, rales, or rhonchi. Good air entry. ABDOMEN: Bowel sounds are positive, soft, nontender, and nondistended. EXTREMITIES: No edema. Has 1+ pulses. ASSESSMENT: 1. Sepsis. 2. Right leg blister. 3. Deep vein thrombosis. 4. Pulmonary embolism with inferior cava filter. 5. PENICILLIN ALLERGY. PLAN: The patient is currently comfortable. He is being followed by surgery. He is on aztreonam fo r his PENICILLIN ALLERGY. The patient is on morphine for pain. I will renew this. The patient is o n IV fluids. I will discontinue the patient's IV fluids. He is on Flagyl. He is on Zofran as neede d. He is on Tylenol. He is on a heart healthy diet. Luis Mercado MD cc: [phone] TT: 02/28/2017 08:40:25 Confirmation # [id number] Dictation # [id number] jn
[2017-02-28] MEDS: Linezolid 600 mg in D5W 300 ml 600 MG/300 ML BAG IVPB SCH ×2 (10:12→21:47)
[2017-02-28] MEDS: Silver Sulfadiazine 1% Cream (20 gm) TOP SCH (10:12)
--- NOTE | 2017-02-28 22:53 | CP.PCM.PN ---
Subjective - Date & Time of Evaluation Date of Evaluation: 02/28/17 Time of Evaluation: 11:10 - Subjective Subjective: Still with right leg pain but a little better; still having low grade fevers. Objective - Vital Signs/Intake and Output Vital Signs (last 24 hours): Temp Pulse Resp BP Pulse Ox 102.4 F H 94 H 18 110/73 98 02/28/17 17:04 02/28/17 16:00 02/28/17 16:00 02/28/17 16:00 02/28/17 16:00 Intake and Output: 02/28/17 03/01/17 18:59 06:59 Intake Total 780 Output Total 1550 Balance -770 - Medications Medications: Current Medications Acetaminophen (Tylenol 325mg Tab) 650 mg PO Q4H PRN PRN Reason: t > 100.4 Last Admin: 02/28/17 17:04 Dose: 650 mg Acetaminophen (Tylenol 325mg Tab) 650 mg PO Q4H PRN PRN Reason: Headache Benzocaine/Menthol (Cepacol Sore Throat) 1 mallika MT Q2H PRN PRN Reason: Sore Throat Last Admin: 02/28/17 01:40 Dose: 1 mallika Enoxaparin Sodium (Lovenox) 110 mg SC Q12H RASHMI PRN Reason: Protocol Last Admin: 02/28/17 17:35 Dose: 110 mg Aztreonam (Azactam 1 Gm) 100 mls @ 100 mls/hr IVPB Q8 RASHMI PRN Reason: Protocol Stop: 03/04/17 22:01 Last Admin: 02/28/17 21:47 Dose: 100 mls/hr Metronidazole (Flagyl) 500 mg in 100 mls @ 100 mls/hr IVPB Q8 RASHMI PRN Reason: Protocol Last Admin: 02/28/17 21:47 Dose: 100 mls/hr Linezolid (Zyvox 600mg/300ml D5w) 600 mg in 300 mls @ 200 mls/hr IVPB Q12 RASHMI PRN Reason: Protocol Stop: 03/07/17 10:01 Last Admin: 02/28/17 21:47 Dose: 200 mls/hr Morphine Sulfate (Morphine) 2 mg IVP Q4H PRN PRN Reason: Pain, moderate (4-7) Last Admin: 02/26/17 17:00 Dose: 2 mg Ondansetron HCl (Zofran Inj) 4 mg IVP Q4H PRN PRN Reason: Nausea/Vomiting Stop: 03/03/17 10:01 Last Admin: 02/26/17 13:41 Dose: 4 mg Silver Sulfadiazine (Silvadene 1% 20 Gm) 1 ea TOP DAILY RASHMI Last Admin: 02/28/17 10:12 Dose: 1 applic - Labs Labs: 02/26/17 10:41 PT 12.7 Seconds (9.9-11.8) H 02/25/17 10:30 INR 1.18 (0.93-1.08) H 02/25/17 10:30 APTT 28.1 Seconds (23.7-30.8) 02/25/17 10:30 - Constitutional Appears: Non-toxic, No Acute Distress - Head Exam Head Exam: NORMAL INSPECTION - Neck Exam Neck Exam: absent: Lymphadenopathy, Meningismus - Respiratory Exam Respiratory Exam: Decreased Breath Sounds - Cardiovascular Exam Cardiovascular Exam: +S1, +S2 - GI/Abdominal Exam GI & Abdominal Exam: Soft. absent: Tenderness - Extremities Exam Additional comments: right leg with swelling Assessment and Plan - Assessment and Plan (Free Text) Plan: Assessment right lower extremity with skin and skin structure infection growing Staph aureus and Strep pyogenes and acute DVT DVT and PE S/P IVC filter placement obesity with BMI 32 Plan switched antibiotics to Zyvox and will monitor clinical response on anticoagulation will follow clinically
[2017-03-01] MEDS: metroNIDAZOLE IV 500 mg/100 ml 500 MG/100 ML BAG IVPB SCH ×3 (05:27→22:12)
[2017-03-01] MEDS: Enoxaparin 120 mg Syringe SC SCH ×2 (05:37→18:15)
[2017-03-01 07:09] LABS: HEMATOCRIT 34.6 % (42.0-52.0); MEAN CELL VOLUME 84.6 fL (80.0-105.0); MEAN CORPUSCULAR HEMOGLOBIN 30.1 pg (25.0-35.0); MEAN CORPUSCULAR HGB CONC 35.5 g/dl (31.0-37.0); MEAN PLATELET VOLUME 10.1 fl (7.0-11.0); RED CELL DISTRIBUTION WIDTH 13.1 % (11.5-14.5); WHITE BLOOD COUNT 5.5 10^3/ul (4.5-11.0)
[2017-03-01 07:24] LABS: ALB/GLOB RATIO 0.8 (1.1-1.8); ALKALINE PHOSPHATASE 52 U/L (38-133); ALT/SGPT 36 U/L (7-56); AST/SGOT 91 U/L (15-59); BILIRUBIN,TOTAL 0.8 mg/dL (0.2-1.3); BLOOD UREA NITROGEN 10 mg/dL (7-21); CALCIUM 8.5 mg/dL (8.4-10.5); CARBON DIOXIDE 25 mmol/L (21-33); CHLORIDE 104 mmol/L (98-107); GFR AFRICAN-AMERICAN > 60; GLUCOSE,RANDOM 94 mg/dL (70-110); POTASSIUM 3.3 mmol/L (3.6-5.0); SODIUM 136 mmol/L (132-148); TOTAL PROTEIN 7.4 g/dL (5.8-8.3)
[2017-03-01] MEDS: Morphine 2 mg/ml ISec IVP PRN (09:17)
[2017-03-01] MEDS: Linezolid 600 mg in D5W 300 ml 600 MG/300 ML BAG IVPB SCH ×2 (09:17→22:13)
[2017-03-01] MEDS: Silver Sulfadiazine 1% Cream (20 gm) TOP SCH (10:00)
--- NOTE | 2017-03-01 12:54 | PN ---
DATE: 03/01/2017 SUBJECTIVE: The patient has no complaints of any chest pain, no shortness of breath, no headaches or dizziness. PHYSICAL EXAMINATION: VITAL SIGNS: Temperature is 99.2, pulse is 70, blood pressure is 138/87, respirations 18. GENERAL: The patient comfortable, in no acute distress. HEENT: Anicteric sclerae. Moist mucosa. NECK: No JVD or adenopathy. CARDIAC: S1/S2. No murmurs. No rubs. Regular. RESPIRATORY: Clear to auscultation bilaterally. No wheezes, rales, or rhonchi. Good air entry. ABDOMEN: Bowel sounds are positive, soft, nontender, and nondistended. EXTREMITIES: No edema. Has 1+ pulses. Right leg is wrapped. LABS: White count of 5.5, hemoglobin of 12.3, creatinine is 3.3. ASSESSMENT: 1. Sepsis. 2. Right leg ulcer, approximately 3-4 cm. 3. Deep venous thrombosis. 4. PE with inferior venous cava filter. 5. PENICILLIN ALLERGY. PLAN: The patient is on Flagyl, going to continue. He is on Lovenox for anticoagulation. He is off his Eliquis. He is on linezolid. The patient has culture that shows staph and strep, he is being f ollowed by infectious disease. The patient is comfortable. I did speak to Dr. Bustos regarding the c ase yesterday, regarding the anticoagulation he will continue with Lovenox for now. Luis Mercado MD cc: [phone] TT: 03/01/2017 12:53:58 Confirmation # [id number] Dictation # [id number] jose
--- NOTE | 2017-03-01 18:59 | CP.PCM.PN ---
Subjective - Date & Time of Evaluation Date of Evaluation: 03/01/17 Time of Evaluation: 08:35 - Subjective Subjective: Still with pain in the right leg, with swelling, still with fevers overnight. Objective - Vital Signs/Intake and Output Vital Signs (last 24 hours): Temp Pulse Resp BP Pulse Ox 99.2 F 70 18 138/87 98 03/01/17 07:27 03/01/17 07:27 03/01/17 07:27 03/01/17 07:27 03/01/17 07:27 Intake and Output: 03/01/17 03/01/17 06:59 18:59 Intake Total 780 840 Output Total 1550 575 Balance -770 265 - Medications Medications: Current Medications Acetaminophen (Tylenol 325mg Tab) 650 mg PO Q4H PRN PRN Reason: t > 100.4 Last Admin: 03/01/17 18:11 Dose: 650 mg Acetaminophen (Tylenol 325mg Tab) 650 mg PO Q4H PRN PRN Reason: Headache Benzocaine/Menthol (Cepacol Sore Throat) 1 mallika MT Q2H PRN PRN Reason: Sore Throat Last Admin: 02/28/17 01:40 Dose: 1 mallika Enoxaparin Sodium (Lovenox) 110 mg SC Q12H RASHMI PRN Reason: Protocol Last Admin: 03/01/17 18:15 Dose: 110 mg Metronidazole (Flagyl) 500 mg in 100 mls @ 100 mls/hr IVPB Q8 RASHMI PRN Reason: Protocol Last Admin: 03/01/17 14:00 Dose: 100 mls/hr Linezolid (Zyvox 600mg/300ml D5w) 600 mg in 300 mls @ 200 mls/hr IVPB Q12 RASHMI PRN Reason: Protocol Stop: 03/07/17 10:01 Last Admin: 03/01/17 09:17 Dose: 200 mls/hr Morphine Sulfate (Morphine) 2 mg IVP Q4H PRN PRN Reason: Pain, moderate (4-7) Last Admin: 03/01/17 09:17 Dose: 2 mg Ondansetron HCl (Zofran Inj) 4 mg IVP Q4H PRN PRN Reason: Nausea/Vomiting Stop: 03/03/17 10:01 Last Admin: 02/26/17 13:41 Dose: 4 mg Silver Sulfadiazine (Silvadene 1% 20 Gm) 1 ea TOP DAILY RASHMI Last Admin: 03/01/17 10:00 Dose: 1 applic - Labs Labs: 03/01/17 07:03 03/01/17 07:03 PT 12.7 Seconds (9.9-11.8) H 02/25/17 10:30 INR 1.18 (0.93-1.08) H 02/25/17 10:30 APTT 28.1 Seconds (23.7-30.8) 02/25/17 10:30 - Constitutional Appears: Non-toxic, No Acute Distress - Head Exam Head Exam: NORMAL INSPECTION - Neck Exam Neck Exam: absent: Lymphadenopathy, Meningismus - Respiratory Exam Respiratory Exam: Decreased Breath Sounds - Cardiovascular Exam Cardiovascular Exam: +S1, +S2 - GI/Abdominal Exam GI & Abdominal Exam: Soft. absent: Tenderness - Extremities Exam Additional comments: right leg still with swelling Assessment and Plan - Assessment and Plan (Free Text) Plan: Assessment right lower extremity with skin and skin structure infection growing Staph aureus and Strep pyogenes and acute DVT DVT and PE S/P IVC filter placement obesity with BMI 32 Plan cotntinue Zyvox; since there is still fever and swelling, will re-add Azactam and Flagyl and patient should be evaluated by surgery for possible I and D will continue to monitor clinical response patient on anticoagulation will continue to follow clinically
[2017-03-01] MEDS: Aztreonam 1 Gm in NS 100mL 100 ML IVPB SCH (22:12)
[2017-03-02] MEDS: metroNIDAZOLE IV 500 mg/100 ml 500 MG/100 ML BAG IVPB SCH ×3 (05:00→21:00)
[2017-03-02] MEDS: Aztreonam 1 Gm in NS 100mL 100 ML IVPB SCH ×3 (05:00→21:01)
[2017-03-02] MEDS: Enoxaparin 120 mg Syringe SC SCH (07:59)
--- NOTE | 2017-03-02 08:17 | CP.PCM.PN ---
Subjective - Date & Time of Evaluation Date of Evaluation: 03/02/17 Time of Evaluation: 08:13 - Subjective Subjective: Surgery for Dr. Umanzor. Dr. Bliss covering over the weekend. Pt s&eRoland ROJO. Denies F/C/N/V/D. c/o R lin pain but improving. Swelling improving. Lateral lin no more draining and ulcer healing. Objective - Vital Signs/Intake and Output Vital Signs (last 24 hours): Temp Pulse Resp BP Pulse Ox 99.2 F 73 20 152/94 H 95 03/02/17 07:41 03/02/17 07:41 03/02/17 07:41 03/02/17 07:41 03/02/17 07:41 Intake and Output: 03/02/17 03/02/17 06:59 18:59 Output Total 600 Balance -600 - Medications Medications: Current Medications Acetaminophen (Tylenol 325mg Tab) 650 mg PO Q4H PRN PRN Reason: t > 100.4 Last Admin: 03/01/17 18:11 Dose: 650 mg Acetaminophen (Tylenol 325mg Tab) 650 mg PO Q4H PRN PRN Reason: Headache Benzocaine/Menthol (Cepacol Sore Throat) 1 mallika MT Q2H PRN PRN Reason: Sore Throat Last Admin: 02/28/17 01:40 Dose: 1 mallika Enoxaparin Sodium (Lovenox) 110 mg SC Q12H RASHMI PRN Reason: Protocol Last Admin: 03/02/17 07:59 Dose: 110 mg Metronidazole (Flagyl) 500 mg in 100 mls @ 100 mls/hr IVPB Q8 RASHMI PRN Reason: Protocol Last Admin: 03/02/17 05:00 Dose: 100 mls/hr Linezolid (Zyvox 600mg/300ml D5w) 600 mg in 300 mls @ 200 mls/hr IVPB Q12 RASHMI PRN Reason: Protocol Stop: 03/07/17 10:01 Last Admin: 03/01/17 22:13 Dose: 200 mls/hr Aztreonam (Azactam 1 Gm) 100 mls @ 100 mls/hr IVPB Q8 RASHMI PRN Reason: Protocol Stop: 03/08/17 22:01 Last Admin: 03/02/17 05:00 Dose: 100 mls/hr Morphine Sulfate (Morphine) 2 mg IVP Q4H PRN PRN Reason: Pain, moderate (4-7) Last Admin: 03/01/17 09:17 Dose: 2 mg Ondansetron HCl (Zofran Inj) 4 mg IVP Q4H PRN PRN Reason: Nausea/Vomiting Stop: 03/03/17 10:01 Last Admin: 02/26/17 13:41 Dose: 4 mg Silver Sulfadiazine (Silvadene 1% 20 Gm) 1 ea TOP DAILY RASHMI Last Admin: 03/01/17 10:00 Dose: 1 applic - Labs Labs: 03/01/17 07:03 03/01/17 07:03 PT 12.7 Seconds (9.9-11.8) H 02/25/17 10:30 INR 1.18 (0.93-1.08) H 02/25/17 10:30 APTT 28.1 Seconds (23.7-30.8) 02/25/17 10:30 - Constitutional Appears: No Acute Distress - Head Exam Head Exam: ATRAUMATIC, NORMAL INSPECTION, NORMOCEPHALIC - Eye Exam Eye Exam: EOMI, Normal appearance, PERRL Pupil Exam: NORMAL ACCOMODATION, PERRL - ENT Exam ENT Exam: Mucous Membranes Moist, Normal Exam - Neck Exam Neck Exam: Full ROM, Normal Inspection. absent: Lymphadenopathy - Respiratory Exam Respiratory Exam: NORMAL BREATHING PATTERN - Cardiovascular Exam Cardiovascular Exam: REGULAR RHYTHM, +S1, +S2. absent: Murmur - GI/Abdominal Exam GI & Abdominal Exam: Soft, Normal Bowel Sounds. absent: Distended, Firm, Guarding, Tenderness - Extremities Exam Extremities Exam: Full ROM, Pedal Edema, Tenderness. absent: Normal Inspection Additional comments: R lateral leg has 3cm ulceration. Healing. Non draining. R anteromedial lin has swelling. 10cm induration. TTP. Discoloration. Non fluctuant. - Neurological Exam Neurological Exam: Alert, Awake, CN II-XII Intact, Normal Gait, Oriented x3 - Psychiatric Exam Psychiatric exam: Normal Affect, Normal Mood - Skin Skin Exam: Abrasion, Dry, Intact, Warm Assessment and Plan - Assessment and Plan (Free Text) Assessment: RLE swelling 2/2 cellulitis and DVT. r/o abscess US R CFV , R popliteal V DVT Area is non fluctuant and is improving per pt. -Medical management -Will re-evaluate with attending. -Continue wound care with [place] on ulcer DW Dr. Bliss who is covering for Dr. Umanzor
[2017-03-02 09:49] LABS: ADD MANUAL DIFF? NO
[2017-03-02 09:54] LABS: BASO # 0.02 K/mm3 (0.0-2.0); BASO % 0.4 % (0.0-3.0); EOS # 0.1 (0.0-0.7); EOS % 1.5 % (1.5-5.0); GRAN # 3.59 (1.4-6.5); GRAN % 68.4 % (50.0-68.0); LYMPH # 1.2 (1.2-3.4); LYMPH % 22.3 % (22.0-35.0); MEAN CELL VOLUME 84.7 fL (80.0-105.0); MEAN CORPUSCULAR HEMOGLOBIN 29.8 pg (25.0-35.0); MEAN CORPUSCULAR HGB CONC 35.1 g/dl (31.0-37.0); MEAN PLATELET VOLUME 9.5 fl (7.0-11.0); MONO # 0.4 (0.1-0.6); MONO % 7.4 % (1.0-6.0); PLATELET COUNT 161 10^3/uL (120.0-450.0); RED CELL DISTRIBUTION WIDTH 13.1 % (11.5-14.5); WHITE BLOOD COUNT 5.3 10^3/ul (4.5-11.0)
[2017-03-02 10:06] LABS: BLOOD UREA NITROGEN 10 mg/dL (7-21); CALCIUM 8.5 mg/dL (8.4-10.5); CARBON DIOXIDE 27 mmol/L (21-33); CHLORIDE 102 mmol/L (98-107); GFR AFRICAN-AMERICAN > 60; GLUCOSE,RANDOM 135 mg/dL (70-110); POTASSIUM 3.2 mmol/L (3.6-5.0); SODIUM 136 mmol/L (132-148)
[2017-03-02] MEDS ORDERED: Potassium Chloride 20 mEq ER Tab PO ONE (10:14)
[2017-03-02] MEDS: Silver Sulfadiazine 1% Cream (20 gm) TOP SCH (11:00)
[2017-03-02] MEDS: Linezolid 600 mg in D5W 300 ml 600 MG/300 ML BAG IVPB SCH ×2 (11:00→21:01)
--- NOTE | 2017-03-02 11:33 | PN ---
DATE: 03/02/2017 SUBJECTIVE: The patient has no complaints of any chest pain, no shortness of breath, no headaches. PHYSICAL EXAMINATION: VITAL SIGNS: Temperature is 99.2, pulse is 73, blood pressure is 152/94, respiration is 20. The pat keri had a T-max of 102.4 two days ago. GENERAL: The patient comfortable, in no acute distress. HEENT: Anicteric sclerae. Moist mucosa. NECK: No JVD or adenopathy. CARDIAC: S1/S2. No murmurs. No rubs. Regular. RESPIRATORY: Clear to auscultation bilaterally. No wheezes, rales, or rhonchi. Good air entry. ABDOMEN: Bowel sounds are positive, soft, nontender, and nondistended. EXTREMITIES: No edema. Has 1+ pulses. LABORATORIES: Potassium is 3.2. Hemoglobin is 12.3. ASSESSMENT: 1. Sepsis. 2. Right leg ulcer, about 3-4 cm. 3. Deep vein thrombosis. 4. Pulmonary embolism with inferior vena cava filter. 5. PENICILLIN ALLERGY. PLAN: The patient is currently comfortable, is on Zyvox. He is on Azactam and Flagyl. The patient is being followed by surgery. The patient has a potassium that is 3.2. He is on Lovenox for his ant icoagulation. I will renew his Flagyl. He is also going to have his morphine renewed for pain. He is on a heart healthy diet. Luis Mercado MD cc: [id number] TT: 03/02/2017 11:32:19 Confirmation # [id number] Dictation # [id number] en
--- NOTE | 2017-03-02 19:25 | CP.PCM.PN ---
Subjective - Date & Time of Evaluation Date of Evaluation: 03/02/17 Time of Evaluation: 12:55 - Subjective Subjective: Still with leg swelling and pain but is a little less. Still with low grade fevers overnight but not as high as previous days. Objective - Vital Signs/Intake and Output Vital Signs (last 24 hours): Temp Pulse Resp BP Pulse Ox 100.8 F H 77 20 141/87 98 03/02/17 17:49 03/02/17 17:42 03/02/17 17:42 03/02/17 17:42 03/02/17 17:42 Intake and Output: 03/02/17 03/03/17 18:59 06:59 Intake Total 480 Balance 480 - Medications Medications: Current Medications Acetaminophen (Tylenol 325mg Tab) 650 mg PO Q4H PRN PRN Reason: t > 100.4 Last Admin: 03/02/17 17:49 Dose: 650 mg Acetaminophen (Tylenol 325mg Tab) 650 mg PO Q4H PRN PRN Reason: Headache Benzocaine/Menthol (Cepacol Sore Throat) 1 mallika MT Q2H PRN PRN Reason: Sore Throat Last Admin: 02/28/17 01:40 Dose: 1 mallika Enoxaparin Sodium (Lovenox) 110 mg SC Q12H RASHMI PRN Reason: Protocol Last Admin: 03/02/17 07:59 Dose: 110 mg Metronidazole (Flagyl) 500 mg in 100 mls @ 100 mls/hr IVPB Q8 RASHMI PRN Reason: Protocol Last Admin: 03/02/17 14:23 Dose: 100 mls/hr Linezolid (Zyvox 600mg/300ml D5w) 600 mg in 300 mls @ 200 mls/hr IVPB Q12 RASHMI PRN Reason: Protocol Stop: 03/07/17 10:01 Last Admin: 03/02/17 11:00 Dose: 200 mls/hr Aztreonam (Azactam 1 Gm) 100 mls @ 100 mls/hr IVPB Q8 RASHMI PRN Reason: Protocol Stop: 03/08/17 22:01 Last Admin: 03/02/17 14:00 Dose: 100 mls/hr Morphine Sulfate (Morphine) 2 mg IVP Q4H PRN PRN Reason: Pain, moderate (4-7) Last Admin: 03/01/17 09:17 Dose: 2 mg Ondansetron HCl (Zofran Inj) 4 mg IVP Q4H PRN PRN Reason: Nausea/Vomiting Stop: 03/03/17 10:01 Last Admin: 02/26/17 13:41 Dose: 4 mg Silver Sulfadiazine (Silvadene 1% 20 Gm) 1 ea TOP DAILY RASHMI Last Admin: 03/02/17 11:00 Dose: 1 applic - Labs Labs: 03/02/17 09:30 03/02/17 09:30 PT 12.7 Seconds (9.9-11.8) H 02/25/17 10:30 INR 1.18 (0.93-1.08) H 02/25/17 10:30 APTT 28.1 Seconds (23.7-30.8) 02/25/17 10:30 - Constitutional Appears: Non-toxic, No Acute Distress - Head Exam Head Exam: NORMAL INSPECTION - ENT Exam ENT Exam: Mucous Membranes Moist - Neck Exam Neck Exam: absent: Lymphadenopathy, Meningismus - Respiratory Exam Respiratory Exam: Decreased Breath Sounds - Cardiovascular Exam Cardiovascular Exam: +S1, +S2 - GI/Abdominal Exam GI & Abdominal Exam: Soft. absent: Tenderness Assessment and Plan - Assessment and Plan (Free Text) Plan: Assessment right lower extremity with skin and skin structure infection growing Staph aureus and Strep pyogenes and acute DVT DVT and PE S/P IVC filter placement obesity with BMI 32 Plan continue Zyvox; since there is still fever and swelling, will also continue Azactam and Flagyl and patient follow up surgery plan for possible I and D will continue to monitor clinical response patient on anticoagulation will continue to follow clinically
--- NOTE | 2017-03-02 23:04 | CP.PCM.PN ---
Subjective - Date & Time of Evaluation Date of Evaluation: 02/28/17 Time of Evaluation: 18:00 - Subjective Subjective: Right leg swelling decreased slightly. Continues to have low grade fever. Difficulty in ambulating. He has extensive DVT in both lower extremities. He was on eliquis . US doppler showed complete occlusion of right femoral vein. Currently on lovenox, full dose anticoagulation. Objective - Vital Signs/Intake and Output Vital Signs (last 24 hours): Temp Pulse Resp BP Pulse Ox 100.8 F H 77 20 141/87 98 03/02/17 17:49 03/02/17 17:42 03/02/17 17:42 03/02/17 17:42 03/02/17 17:42 Intake and Output: 03/02/17 03/03/17 18:59 06:59 Intake Total 480 Balance 480 - Medications Medications: Current Medications Acetaminophen (Tylenol 325mg Tab) 650 mg PO Q4H PRN PRN Reason: t > 100.4 Last Admin: 03/02/17 17:49 Dose: 650 mg Acetaminophen (Tylenol 325mg Tab) 650 mg PO Q4H PRN PRN Reason: Headache Benzocaine/Menthol (Cepacol Sore Throat) 1 mallika MT Q2H PRN PRN Reason: Sore Throat Last Admin: 02/28/17 01:40 Dose: 1 mallika Enoxaparin Sodium (Lovenox) 110 mg SC Q12H RASHMI PRN Reason: Protocol Last Admin: 03/02/17 07:59 Dose: 110 mg Metronidazole (Flagyl) 500 mg in 100 mls @ 100 mls/hr IVPB Q8 RASHMI PRN Reason: Protocol Last Admin: 03/02/17 21:00 Dose: 100 mls/hr Linezolid (Zyvox 600mg/300ml D5w) 600 mg in 300 mls @ 200 mls/hr IVPB Q12 RASHMI PRN Reason: Protocol Stop: 03/07/17 10:01 Last Admin: 03/02/17 21:01 Dose: 200 mls/hr Aztreonam (Azactam 1 Gm) 100 mls @ 100 mls/hr IVPB Q8 RASHMI PRN Reason: Protocol Stop: 03/08/17 22:01 Last Admin: 03/02/17 21:01 Dose: 100 mls/hr Morphine Sulfate (Morphine) 2 mg IVP Q4H PRN PRN Reason: Pain, moderate (4-7) Last Admin: 03/01/17 09:17 Dose: 2 mg Ondansetron HCl (Zofran Inj) 4 mg IVP Q4H PRN PRN Reason: Nausea/Vomiting Stop: 03/03/17 10:01 Last Admin: 02/26/17 13:41 Dose: 4 mg Silver Sulfadiazine (Silvadene 1% 20 Gm) 1 ea TOP DAILY RASHMI Last Admin: 03/02/17 11:00 Dose: 1 applic - Labs Labs: 03/02/17 09:30 03/02/17 09:30 PT 12.7 Seconds (9.9-11.8) H 02/25/17 10:30 INR 1.18 (0.93-1.08) H 02/25/17 10:30 APTT 28.1 Seconds (23.7-30.8) 02/25/17 10:30 - Constitutional Appears: Non-toxic - Head Exam Head Exam: ATRAUMATIC, NORMAL INSPECTION, NORMOCEPHALIC - Eye Exam Eye Exam: Normal appearance Pupil Exam: NORMAL ACCOMODATION - ENT Exam ENT Exam: Mucous Membranes Moist, Normal Exam - Neck Exam Neck Exam: Normal Inspection - Respiratory Exam Respiratory Exam: Clear to Ausculation Bilateral, NORMAL BREATHING PATTERN - Cardiovascular Exam Cardiovascular Exam: REGULAR RHYTHM, +S1, +S2 - GI/Abdominal Exam GI & Abdominal Exam: Soft, Normal Bowel Sounds - Extremities Exam Extremities Exam: Pedal Edema Additional comments: right leg cellulitis - Neurological Exam Neurological Exam: Alert, Awake, CN II-XII Intact, Normal Gait, Oriented x3 - Psychiatric Exam Psychiatric exam: Normal Affect - Skin Skin Exam: Normal Color, Warm Assessment and Plan - Assessment and Plan (Free Text) Assessment: 1. Acute on chronic DVT : continue full dose anticoagulation. Continue for 4-6 week of lovenox. Then transition to eliquis. 2. Right leg cellulitis : on IV antibiotics. ID following. 3. Hypercoaguable state. life long anticoagulation. 4. Evaluated by vascular surgery. No surgical options. Has IVC filter for [address] Mercado.
[2017-03-03] MEDS: metroNIDAZOLE IV 500 mg/100 ml 500 MG/100 ML BAG IVPB SCH ×4 (05:47→22:20)
[2017-03-03] MEDS: Aztreonam 1 Gm in NS 100mL 100 ML IVPB SCH ×3 (05:47→21:18)
[2017-03-03 07:30] LABS: ADD MANUAL DIFF? NO
[2017-03-03 07:37] LABS: BASO # 0.01 K/mm3 (0.0-2.0); BASO % 0.2 % (0.0-3.0); EOS # 0.1 (0.0-0.7); EOS % 2.9 % (1.5-5.0); GRAN # 2.94 (1.4-6.5); GRAN % 60.8 % (50.0-68.0); HEMATOCRIT 35.6 % (42.0-52.0); LYMPH # 1.1 (1.2-3.4); LYMPH % 22.1 % (22.0-35.0); MEAN CELL VOLUME 84.6 fL (80.0-105.0); MEAN CORPUSCULAR HEMOGLOBIN 29.2 pg (25.0-35.0); MEAN CORPUSCULAR HGB CONC 34.6 g/dl (31.0-37.0); MEAN PLATELET VOLUME 9.7 fl (7.0-11.0); MONO # 0.7 (0.1-0.6); PLATELET COUNT 186 10^3/uL (120.0-450.0); RED CELL DISTRIBUTION WIDTH 13.4 % (11.5-14.5); WHITE BLOOD COUNT 4.8 10^3/ul (4.5-11.0)
--- NOTE | 2017-03-03 07:39 | RAD ---
HISTORY: Pre-Op COMPARISON: Comparison chest 03/07/2012 FINDINGS: LUNGS: No active pulmonary disease. PLEURA: No significant pleural effusion identified, no pneumothorax apparent. CARDIOVASCULAR: Normal. OSSEOUS STRUCTURES: No significant abnormalities. VISUALIZED UPPER ABDOMEN: Normal. OTHER FINDINGS: None. IMPRESSION: No active disease.
[2017-03-03 07:42] LABS: INR 1.06 (0.93-1.08); PARTIAL THROMBOPLASTIN TIME 26.1 Seconds (23.7-30.8)
--- NOTE | 2017-03-03 07:57 | CP.PCM.PN ---
Subjective - Date & Time of Evaluation Date of Evaluation: 03/03/17 Time of Evaluation: 07:30 - Subjective Subjective: General Surgery Progress Note for Dr. Umanzor. Pt was seen and examined at bedside. No acute complaints at this time and no acute adverse avents overnight as per nursing staff. Pt denied fever, chills, n/ v/d/c. He does admit to RLE pain & swelling, however improving. Objective - Vital Signs/Intake and Output Vital Signs (last 24 hours): Temp Pulse Resp BP Pulse Ox 100.8 F H 77 20 141/87 98 03/02/17 17:49 03/02/17 17:42 03/02/17 17:42 03/02/17 17:42 03/02/17 17:42 Intake and Output: 03/03/17 03/03/17 06:59 18:59 Intake Total 700 Balance 700 - Medications Medications: Current Medications Acetaminophen (Tylenol 325mg Tab) 650 mg PO Q4H PRN PRN Reason: t > 100.4 Last Admin: 03/02/17 17:49 Dose: 650 mg Acetaminophen (Tylenol 325mg Tab) 650 mg PO Q4H PRN PRN Reason: Headache Benzocaine/Menthol (Cepacol Sore Throat) 1 mallika MT Q2H PRN PRN Reason: Sore Throat Last Admin: 02/28/17 01:40 Dose: 1 mallika Enoxaparin Sodium (Lovenox) 110 mg SC Q12H RASHMI PRN Reason: Protocol Last Admin: 03/02/17 07:59 Dose: 110 mg Metronidazole (Flagyl) 500 mg in 100 mls @ 100 mls/hr IVPB Q8 RASHMI PRN Reason: Protocol Last Admin: 03/03/17 05:47 Dose: 100 mls/hr Linezolid (Zyvox 600mg/300ml D5w) 600 mg in 300 mls @ 200 mls/hr IVPB Q12 RASHMI PRN Reason: Protocol Stop: 03/07/17 10:01 Last Admin: 03/02/17 21:01 Dose: 200 mls/hr Aztreonam (Azactam 1 Gm) 100 mls @ 100 mls/hr IVPB Q8 RAHSMI PRN Reason: Protocol Stop: 03/08/17 22:01 Last Admin: 03/03/17 05:47 Dose: 100 mls/hr Morphine Sulfate (Morphine) 2 mg IVP Q4H PRN PRN Reason: Pain, moderate (4-7) Last Admin: 03/01/17 09:17 Dose: 2 mg Ondansetron HCl (Zofran Inj) 4 mg IVP Q4H PRN PRN Reason: Nausea/Vomiting Stop: 03/03/17 10:01 Last Admin: 02/26/17 13:41 Dose: 4 mg Silver Sulfadiazine (Silvadene 1% 20 Gm) 1 ea TOP DAILY RASHMI Last Admin: 03/02/17 11:00 Dose: 1 applic - Labs Labs: 03/03/17 07:00 03/02/17 09:30 PT 11.5 Seconds (9.9-11.8) 03/03/17 07:00 INR 1.06 (0.93-1.08) 03/03/17 07:00 APTT 26.1 Seconds (23.7-30.8) 03/03/17 07:00 - Constitutional Appears: Well, No Acute Distress - Head Exam Head Exam: ATRAUMATIC, NORMAL INSPECTION, NORMOCEPHALIC - Eye Exam Eye Exam: EOMI, Normal appearance, PERRL Pupil Exam: NORMAL ACCOMODATION, PERRL - ENT Exam ENT Exam: Mucous Membranes Moist, Normal Exam - Respiratory Exam Respiratory Exam: Clear to Ausculation Bilateral, NORMAL BREATHING PATTERN - Cardiovascular Exam Cardiovascular Exam: REGULAR RHYTHM, +S1, +S2. absent: Murmur - GI/Abdominal Exam GI & Abdominal Exam: Soft, Normal Bowel Sounds. absent: Tenderness - Extremities Exam Additional comments: R lateral leg ulceration healing. Without discharge or oozing noted. R anteromedial lin warm to touch and indurated. TTP. Non fluctuant. - Neurological Exam Neurological Exam: Alert, Awake, CN II-XII Intact, Oriented x3 - Psychiatric Exam Psychiatric exam: Normal Affect, Normal Mood - Skin Skin Exam: Dry, Intact, Normal Color, Warm Assessment and Plan - Assessment and Plan (Free Text) Assessment: 51 M with RLE abscess/cellulitis - Ulcer is healing - Anteromedial RLE is warm to touch and mildly swollen TTP and indurated. Will begin warm complress and reassess if can be I&D - Continue medical management as per primary team - Continue wound care with bharath Seen reviewed and discussed with samson Rizo PGY1
[2017-03-03 08:01] LABS: ALB/GLOB RATIO 0.7 (1.1-1.8); ALKALINE PHOSPHATASE 49 U/L (38-133); ALT/SGPT 53 U/L (7-56); AST/SGOT 80 U/L (15-59); BILIRUBIN,TOTAL 0.4 mg/dL (0.2-1.3); BLOOD UREA NITROGEN 14 mg/dL (7-21); CALCIUM 8.4 mg/dL (8.4-10.5); CARBON DIOXIDE 27 mmol/L (21-33); CHLORIDE 104 mmol/L (98-107); GFR AFRICAN-AMERICAN > 60; GLUCOSE,RANDOM 98 mg/dL (70-110); POTASSIUM 3.7 mmol/L (3.6-5.0); SODIUM 139 mmol/L (132-148); TOTAL PROTEIN 7.6 g/dL (5.8-8.3)
--- NOTE | 2017-03-03 10:07 | PN ---
DATE: 03/03/2017 SUBJECTIVE: The patient has no complaints of any headaches or dizziness, nausea. PHYSICAL EXAMINATION: VITAL SIGNS: Temperature is 98.6, pulse of 74, blood pressure 143/94, respirations 18. GENERAL: The patient comfortable, in no acute distress. HEENT: Anicteric sclerae. Moist mucosa. NECK: No JVD or adenopathy. CARDIAC: S1/S2. No murmurs. No rubs. Regular. RESPIRATORY: Clear to auscultation bilaterally. No wheezes, rales, or rhonchi. Good air entry. ABDOMEN: Bowel sounds are positive, soft, nontender, and nondistended. EXTREMITIES: No edema. Has 1+ pulses. LABS: White count of 4.8, hemoglobin 12.3. ASSESSMENT: 1. Sepsis. 2. Right leg ulcer, about 3-4 cm. 3. Deep vein thrombosis. 4. Pulmonary embolism with inferior vena cava filter. 5. PENICILLIN ALLERGY. PLAN: The patient is currently comfortable. He had low-grade fever of 100.8 yesterday. He has feve r of unknown origin. I believe ID is following the patient. I did speak with Dr. Umanzor. I think that the patient may need a biopsy. The patient is on morphine for pain. He is receiving linezolid. He has cultures that show staph and strep, but his pain and fever are out of proportion to what the wound looks like. Luis Mercado MD cc: [id number] TT: 03/03/2017 10:06:13 Confirmation # [id number] Dictation # [id number] mn
[2017-03-03] MEDS: Linezolid 600 mg in D5W 300 ml 600 MG/300 ML BAG IVPB SCH ×2 (10:20→23:45)
--- NOTE | 2017-03-03 12:34 | CARD ---
APPROVED REPORT EKG Measurement Heart [id number] <Conclusion> Normal sinus rhythm Nonspecific T wave abnormality Abnormal ECG
--- NOTE | 2017-03-03 13:27 | CT ---
PROCEDURE: CT of the right lower extremity HISTORY: continued/worsening cellulitis COMPARISON: 02/25/2017 TECHNIQUE: CT of the right lower extremity was performed without IV contrast. Sagittal and coronal reconstructions were provided FINDINGS: There is no change in the pattern of subcutaneous edema especially on the medial side of the lower extremity. There is no focal abscess. There are no bony abnormalities. IMPRESSION: Cellulitis unchanged
--- NOTE | 2017-03-03 14:01 | CON ---
DATE: 03/03/2017 The patient is seen on the floor. The patient has a chronic deep vein thrombosis with a filter in pl gray, is being treated currently with Lovenox. The right leg has been chronically swollen, but recent ly with an infection of the right anterior lin. CAT scan showed cellulitis without a collection. T he cultures are staph and strep. I have seen this before. The right leg was swollen and tender. No w, there is a little bit of swelling in the upper part of the lin, but it is not tender, it is not f luctuant. Because he had a temperature of 100 on appropriate antibiotics, we will repeat a CAT scan, but there is full range of motion, good pulses. The ulcer on the lower part of the leg will be rivas simona with elevation, wraps, GRAY bandage and Bactroban. I do not think there is any reason to interven e at this point different than we are. Continue the antibiotics, elevation and local care. At his r equest, we started heat, which I do not think will hurt him at all. The other side is I do not think it is going to help much. Yuri Umanzor MD cc: [phone] TT: 03/03/2017 14:00:28 Confirmation # [id number] Dictation # [id number] en
--- NOTE | 2017-03-03 16:44 | CP.PCM.PN ---
Subjective - Date & Time of Evaluation Date of Evaluation: 03/03/17 Time of Evaluation: 11:30 - Subjective Subjective: Had repeat CT of his leg today, still some pain, a little less, still with swelling of the left leg. Objective - Vital Signs/Intake and Output Vital Signs (last 24 hours): Temp Pulse Resp BP Pulse Ox 98.6 F 74 18 143/94 H 99 03/03/17 08:08 03/03/17 08:08 03/03/17 08:08 03/03/17 08:08 03/03/17 08:08 Intake and Output: 03/03/17 03/03/17 06:59 18:59 Intake Total 700 Balance 700 - Medications Medications: Current Medications Acetaminophen (Tylenol 325mg Tab) 650 mg PO Q4H PRN PRN Reason: t > 100.4 Last Admin: 03/02/17 17:49 Dose: 650 mg Acetaminophen (Tylenol 325mg Tab) 650 mg PO Q4H PRN PRN Reason: Headache Benzocaine/Menthol (Cepacol Sore Throat) 1 mallika MT Q2H PRN PRN Reason: Sore Throat Last Admin: 02/28/17 01:40 Dose: 1 mallika Enoxaparin Sodium (Lovenox) 110 mg SC Q12H RASHMI PRN Reason: Protocol Last Admin: 03/02/17 07:59 Dose: 110 mg Metronidazole (Flagyl) 500 mg in 100 mls @ 100 mls/hr IVPB Q8 RASHMI PRN Reason: Protocol Last Admin: 03/03/17 14:44 Dose: 100 mls/hr Linezolid (Zyvox 600mg/300ml D5w) 600 mg in 300 mls @ 200 mls/hr IVPB Q12 RASHMI PRN Reason: Protocol Stop: 03/07/17 10:01 Last Admin: 03/03/17 10:20 Dose: 200 mls/hr Aztreonam (Azactam 1 Gm) 100 mls @ 100 mls/hr IVPB Q8 RASHMI PRN Reason: Protocol Stop: 03/08/17 22:01 Last Admin: 03/03/17 14:00 Dose: 100 mls/hr Morphine Sulfate (Morphine) 2 mg IVP Q4H PRN PRN Reason: Pain, moderate (4-7) Last Admin: 03/01/17 09:17 Dose: 2 mg Mupirocin (Bactroban Ointment) 0 gm TOP BID [facility] Last Admin: 03/03/17 14:46 Dose: 1 applic Silver Sulfadiazine (Silvadene 1% 20 Gm) 1 ea TOP DAILY [facility] Last Admin: 03/02/17 11:00 Dose: 1 applic - Labs Labs: 03/03/17 07:00 03/03/17 07:00 PT 11.5 Seconds (9.9-11.8) 03/03/17 07:00 INR 1.06 (0.93-1.08) 03/03/17 07:00 APTT 26.1 Seconds (23.7-30.8) 03/03/17 07:00 - Constitutional Appears: Non-toxic, No Acute Distress - Head Exam Head Exam: NORMAL INSPECTION - ENT Exam ENT Exam: Mucous Membranes Moist - Neck Exam Neck Exam: absent: Lymphadenopathy, Meningismus - Respiratory Exam Respiratory Exam: Decreased Breath Sounds - Cardiovascular Exam Cardiovascular Exam: +S1, +S2 - GI/Abdominal Exam GI & Abdominal Exam: Soft. absent: Tenderness - Extremities Exam Additional comments: left leg still with swelling Assessment and Plan - Assessment and Plan (Free Text) Plan: Assessment right lower extremity with skin and skin structure infection growing Staph aureus and Strep pyogenes and acute DVT DVT and PE S/P IVC filter placement obesity with BMI 32 Plan continue Zyvox, Azactam and Flagyl day 7; reviewed surgery plan for conservative management will continue to monitor clinical response patient is on anticoagulation will continue to follow clinically
[2017-03-04] MEDS: Aztreonam 1 Gm in NS 100mL 100 ML IVPB SCH ×2 (05:59→15:10)
[2017-03-04 07:18] LABS: ADD MANUAL DIFF? NO
[2017-03-04 07:25] LABS: BASO # 0.03 K/mm3 (0.0-2.0); BASO % 0.7 % (0.0-3.0); EOS # 0.1 (0.0-0.7); EOS % 2.9 % (1.5-5.0); GRAN # 2.84 (1.4-6.5); GRAN % 62.9 % (50.0-68.0); HEMATOCRIT 35.2 % (42.0-52.0); LYMPH # 0.8 (1.2-3.4); LYMPH % 18.4 % (22.0-35.0); MEAN CELL VOLUME 84.2 fL (80.0-105.0); MEAN CORPUSCULAR HEMOGLOBIN 29.2 pg (25.0-35.0); MEAN CORPUSCULAR HGB CONC 34.7 g/dl (31.0-37.0); MEAN PLATELET VOLUME 9.9 fl (7.0-11.0); MONO # 0.7 (0.1-0.6); MONO % 15.1 % (1.0-6.0); PLATELET COUNT 186 10^3/uL (120.0-450.0); RED CELL DISTRIBUTION WIDTH 13.1 % (11.5-14.5); WHITE BLOOD COUNT 4.5 10^3/ul (4.5-11.0)
[2017-03-04 07:36] LABS: ALB/GLOB RATIO 0.8 (1.1-1.8); ALKALINE PHOSPHATASE 51 U/L (38-133); ALT/SGPT 48 U/L (7-56); AST/SGOT 62 U/L (15-59); BILIRUBIN,TOTAL 0.3 mg/dL (0.2-1.3); BLOOD UREA NITROGEN 12 mg/dL (7-21); CALCIUM 8.3 mg/dL (8.4-10.5); CARBON DIOXIDE 26 mmol/L (21-33); CHLORIDE 103 mmol/L (95-110); GFR AFRICAN-AMERICAN > 60; GLUCOSE,RANDOM 100 mg/dL (70-110); POTASSIUM 3.6 mmol/L (3.6-5.0); SODIUM 137 mmol/L (132-148); TOTAL PROTEIN 7.5 g/dL (5.8-8.3)
--- NOTE | 2017-03-04 07:36 | PN ---
DATE: 03/04/2017 SUBJECTIVE: The patient has no complaints of any chest pain, no shortness of breath, no headaches, n o dizziness. PHYSICAL EXAMINATION: VITAL SIGNS: Temperature is 99.9, pulse of 66, blood pressure is 139/83, respirations 18. GENERAL: The patient comfortable, in no acute distress. HEENT: Anicteric sclerae. Moist mucosa. NECK: No JVD or adenopathy. CARDIAC: S1/S2. No murmurs. No rubs. Regular. RESPIRATORY: Clear to auscultation bilaterally. No wheezes, rales, or rhonchi. Good air entry. ABDOMEN: Bowel sounds are positive, soft, nontender, and nondistended. EXTREMITIES: No edema. Has 1+ pulses. LABORATORIES: White count of 4.8, hemoglobin is 12.3. Creatinine is 1.0. The lower extremity CAT scan done shows cellulitis that is unchanged. There is no abscess that is se en. ASSESSMENT: 1. Right leg ulcer, about 3-4 cm. 2. Sepsis. 3. Deep vein thrombosis. 4. Pulmonary embolism. 5. Inferior vena cava filter. 6. PENICILLIN ALLERGY. PLAN: The patient is currently comfortable. He is on antibiotics with Dr. Olsen from ID following. The patient did have a low-grade fever 2 days ago of 100.8. The patient is on Azactam, is on morphi ne for pain. He is on Flagyl. He is on linezolid for his antibiotics. He is on Lovenox for anticoa gulation. He is on a heart healthy diet. He is being followed by hematology. There are no plans of surgical intervention. Luis Mercado MD cc: [id number] TT: 03/04/2017 07:35:32 Confirmation # [id number] Dictation # [id number] en
[2017-03-04] MEDS: metroNIDAZOLE IV 500 mg/100 ml 500 MG/100 ML BAG IVPB SCH ×2 (07:37→13:40)
--- NOTE | 2017-03-04 08:17 | PN ---
DATE: 03/03/2017 SUBJECTIVE: The patient is comfortable in bed, in no acute distress. He still has difficulty in walking. Right leg is swollen and edematous, right leg is wrapped in dressing. The pain has decreased as per patient. He still cannot bear weight on the right leg. He has extensive DVT in both lower extremities, total occlusion of the right femoral vein. Currently on anticoagulation with Lovenox 110 mg q. 12 hours. He is currently on IV antibiotics as per ID. He has Staph and streptococcal infection in the leg. A repeat CAT scan of the leg was done today, did not show any abscess collection, still edematous right lower limb on CAT scan. He is still having low grade fever. No chills, no rigors. REVIEW OF SYSTEMS: As per HPI. Rest of 12-point review of systems reviewed and negative. MEDICATIONS: Tylenol 650 q. 4 hours p.r.n., Lovenox 110 mg subQ q. 12 hours, Flagyl IV, Zyvox q. 12 hours, aztreonam q. 8 hours, morphine p.r.n. for pain, Zofran 4 mg IV q. 4 hours p.r.n., silver sulfadiazine ointment locally. LABORATORY DATA: White count 4.8, hemoglobin 12.3, hematocrit 35.6, platelet count 186. Sodium 139, potassium 3.9, creatinine 1, AST 80, ALT 53, alkaline phosphatase 49, glucose 98. PHYSICAL EXAMINATION: GENERAL: Comfortable in bed, in no acute distress. VITAL SIGNS: Temperature 99.9, heart rate is 66, blood pressure 139/83, heart rate is 101, respiratory rate 18 per minute, oxygen saturation 98% room air. HEENT: Normal. Lymphadenopathy none. CHEST: Air entry present, equal bilateral. No added sound. CARDIOVASCULAR: S1, S2 normal. No murmur, no gallop. ABDOMEN: Soft, nontender, no hepatosplenomegaly. EXTREMITIES: Right leg edematous, tender. CENTRAL NERVOUS SYSTEM: Alert, oriented x 3. No sensory motor deficit. SPINE: Nontender. ASSESSMENT: 1. Hypercoagulable state. 2. Extensive deep venous thrombosis in right lower extremity. 3. Right leg cellulitis. 4. History of pulmonary embolism with inferior vena cava filter. PLAN: Continue anticoagulation with Lovenox 110 mg subQ b.i.d. I would recommend continuing Lovenox for 4 - 6 weeks. He can transition to Eliquis after that. Currently on IV antibiotic with aztreonam and Flagyl and Zyvox. We will continue that. Still having low-grade fever. Repeat CAT scan of the lower extremity, no abscess collection. He will be continued on IV antibiotic. No surgical intervention planned at this time. Blood count stable. Renal: BUN, creatinine normal. Electrolytes normal. Bedside physical therapy. Thank you, Dr. Mercado, for allowing us to participate in the patient's care. Randa Bustos MD cc: [id number] TT: 03/03/2017 22:42:20 Confirmation # [id number] Dictation # [id number] MTDD
[2017-03-04 08:34] VITALS: RESP 20
[2017-03-04] MEDS: Linezolid 600 mg in D5W 300 ml 600 MG/300 ML BAG IVPB SCH (09:16)
[2017-03-04] MEDS: Silver Sulfadiazine 1% Cream (20 gm) TOP SCH (12:17)
[2017-03-04] MEDS: Enoxaparin 120 mg Syringe SC SCH (17:56)
--- NOTE | 2017-03-04 20:29 | CP.PCM.PN ---
Subjective - Date & Time of Evaluation Date of Evaluation: 03/04/17 Time of Evaluation: 12:45 - Subjective Subjective: Comfortable, less pain in the right leg, no fevers. Objective - Vital Signs/Intake and Output Vital Signs (last 24 hours): Temp Pulse Resp BP Pulse Ox 100.1 F H 91 H 20 137/91 H 98 03/04/17 16:36 03/04/17 16:00 03/04/17 16:00 03/04/17 16:00 03/04/17 16:00 - Medications Medications: Current Medications Acetaminophen (Tylenol 325mg Tab) 650 mg PO Q4H PRN PRN Reason: t > 100.4 Last Admin: 03/04/17 16:36 Dose: 650 mg Acetaminophen (Tylenol 325mg Tab) 650 mg PO Q4H PRN PRN Reason: Headache Benzocaine/Menthol (Cepacol Sore Throat) 1 mallika MT Q2H PRN PRN Reason: Sore Throat Last Admin: 02/28/17 01:40 Dose: 1 mallika Enoxaparin Sodium (Lovenox) 110 mg SC Q12H RASHMI PRN Reason: Protocol Last Admin: 03/04/17 17:56 Dose: 110 mg Linezolid (Zyvox) 600 mg PO BID RASHMI PRN Reason: Protocol Morphine Sulfate (Morphine) 2 mg IVP Q4H PRN PRN Reason: Pain, moderate (4-7) Last Admin: 03/01/17 09:17 Dose: 2 mg Mupirocin (Bactroban Ointment) 0 gm TOP BID [facility] Last Admin: 03/04/17 17:56 Dose: 1 applic Silver Sulfadiazine (Silvadene 1% 20 Gm) 1 ea TOP DAILY [facility] Last Admin: 03/04/17 12:17 Dose: 1 applic - Labs Labs: 03/04/17 07:00 03/04/17 07:00 PT 11.5 Seconds (9.9-11.8) 03/03/17 07:00 INR 1.06 (0.93-1.08) 03/03/17 07:00 APTT 26.1 Seconds (23.7-30.8) 03/03/17 07:00 - Constitutional Appears: Non-toxic, No Acute Distress - Head Exam Head Exam: NORMAL INSPECTION - ENT Exam ENT Exam: Mucous Membranes Moist - Neck Exam Neck Exam: absent: Lymphadenopathy, Meningismus - Respiratory Exam Respiratory Exam: Decreased Breath Sounds - Cardiovascular Exam Cardiovascular Exam: +S1, +S2 - GI/Abdominal Exam GI & Abdominal Exam: Soft. absent: Tenderness Assessment and Plan - Assessment and Plan (Free Text) Plan: Assessment right lower extremity with skin and skin structure infection growing Staph aureus and Strep pyogenes and acute DVT DVT and PE S/P IVC filter placement obesity with BMI 32 Plan continue Zyvox and will d/c Azactam and Flagyl (day 8); reviewed surgery plan for conservative management and reviewed repeat CT which still does not show abscess formation will continue to monitor clinical response patient is on anticoagulation will continue to follow clinically
--- NOTE | 2017-03-04 21:44 | PN ---
DATE: 03/04/2017 SUBJECTIVE: He is comfortable in bed, in no acute distress. He still has pain while walking. He ca nnot bear weight on the right leg. He has right lower extremity cellulitis. There is a 4 cm ulcer o n the right leg. Right leg edema and swelling decreased markedly. He is currently on IV antibiotic with Flagyl, Azactam and Zyvox, currently day 8 of antibiotics. He has extensive DVT in both lower e xtremities, currently on Lovenox anticoagulation. He was previously on Eliquis. He is still having low grade fevers; today, he had 100.7 and 100.1 today, low grade fever. He has Staph and strepto inf ection in the lower extremity, no surgical intervention planned right now. REVIEW OF SYSTEMS: As per HPI. Rest of 12-point review of systems reviewed and negative. PHYSICAL EXAMINATION: GENERAL: Comfortable in bed, in no acute distress. VITAL SIGNS: Temperature 100.1, heart rate 74 per minute, respiratory rate 18 per minute, blood pres sure 140/90, pulse ox is 99% on room air. HEENT: Normal. NECK: No lymphadenopathy. CHEST: Air entry present, equal bilateral. No added sound. CARDIOVASCULAR: S1, S2 normal. No murmur, no gallop. ABDOMEN: Soft, nontender, no hepatosplenomegaly. EXTREMITIES: Right lower extremity edema present. Left extremity, no swelling. SKIN: Changes on the right leg due to edema. Blackish discoloration of the skin. No petechia, no e cchymosis. CENTRAL NERVOUS SYSTEM: Alert, oriented x 3. No sensory motor deficit. SPINE: Normal. CURRENT MEDICATIONS: Tylenol 650 q. 4 hours p.r.n., Lovenox 110 mg subQ q. 12 hours, Flagyl IV and Z yvox IV, aztreonam, morphine p.r.n. for pain, silver sulfadiazine ointment topical. LABORATORY DATA: White count 4.5, hemoglobin 12.2, hematocrit 35.2, platelet count 186. INR 1.06, P T 11.5, PTT 26. Sodium 137, potassium 3.6, calcium 8.3, bilirubin 0.3, AST 62, ALT 48, alkaline phos phatase 51. Sodium 137, potassium 3.6, BUN 14, creatinine 0.9. ASSESSMENT: 1. Extensive DVT in right lower extremity. 2. Right leg cellulitis. 3. History of pulmonary embolism. 4. Hypercoagulable state. PLAN: He is currently on Lovenox 110 mg subQ b.i.d. We will continue Lovenox upon discharge from [facility] for at least 4-6 weeks then transition to Eliquis. He is currently on IV antibiotic as pe r ID. We will discuss with ID regarding discharge planning. He still is running low-grade fever; to day was 100.1. There is no surgical intervention needed as there is no progression and no localizati on of abscess. Clinically, leg improved markedly. Hypercoagulable state. He will continue lifelong anticoagulation. Blood count stable. Renal functions are within normal limits. BUN and creatinine normal. Discussed with the patient, discussed with the staff nurse. Randa Bustos MD cc: [id number] TT: 03/04/2017 21:43:55 Confirmation # [id number] Dictation # [id number] mn
[2017-03-05] MEDS: Enoxaparin 120 mg Syringe SC SCH (05:33)
[2017-03-05 07:30] LABS: ADD MANUAL DIFF? NO
[2017-03-05 07:54] LABS: ALB/GLOB RATIO 0.8 (1.1-1.8); ALKALINE PHOSPHATASE 49 U/L (38-133); ALT/SGPT 47 U/L (7-56); AST/SGOT 64 U/L (15-59); BILIRUBIN,TOTAL 0.4 mg/dL (0.2-1.3); BLOOD UREA NITROGEN 13 mg/dL (7-21); CALCIUM 8.5 mg/dL (8.4-10.5); CARBON DIOXIDE 27 mmol/L (21-33); CHLORIDE 102 mmol/L (95-110); GFR AFRICAN-AMERICAN > 60; GLUCOSE,RANDOM 95 mg/dL (70-110); POTASSIUM 3.6 mmol/L (3.6-5.0); SODIUM 136 mmol/L (132-148); TOTAL PROTEIN 7.8 g/dL (5.8-8.3)
[2017-03-05 08:07] LABS: BASO # 0.02 K/mm3 (0.0-2.0); BASO % 0.5 % (0.0-3.0); EOS # 0.1 (0.0-0.7); EOS % 2.8 % (1.5-5.0); GRAN # 1.86 (1.4-6.5); GRAN % 47.1 % (50.0-68.0); HEMATOCRIT 34.4 % (42.0-52.0); LYMPH # 1.3 (1.2-3.4); LYMPH % 32.9 % (22.0-35.0); MEAN CELL VOLUME 84.1 fL (80.0-105.0); MEAN CORPUSCULAR HEMOGLOBIN 29.3 pg (25.0-35.0); MEAN CORPUSCULAR HGB CONC 34.9 g/dl (31.0-37.0); MEAN PLATELET VOLUME 9.6 fl (7.0-11.0); MONO # 0.7 (0.1-0.6); MONO % 16.7 % (1.0-6.0); PLATELET COUNT 193 10^3/uL (120.0-450.0); RED CELL DISTRIBUTION WIDTH 13.2 % (11.5-14.5)
[2017-03-05] MEDS: Silver Sulfadiazine 1% Cream (20 gm) TOP SCH (11:01)
[2017-03-05 18:45] VITALS: BP 128/86; PULSE 78; TEMP 98.7; O2SAT 99
--- NOTE | 2017-03-05 21:42 | CP.PCM.PN ---
Subjective - Date & Time of Evaluation Date of Evaluation: 03/05/17 Time of Evaluation: 12:35 - Subjective Subjective: Less pain although there is still swelling of the right leg. Last fever was 4pm yesterday. Objective - Vital Signs/Intake and Output Vital Signs (last 24 hours): Temp Pulse Resp BP Pulse Ox 98.7 F 78 20 128/86 99 03/05/17 16:00 03/05/17 16:00 03/05/17 16:00 03/05/17 16:00 03/05/17 16:00 Intake and Output: 03/05/17 03/06/17 18:59 06:59 Intake Total 0 Output Total 800 Balance -800 - Labs Labs: 03/05/17 07:00 03/05/17 07:00 PT 11.5 Seconds (9.9-11.8) 03/03/17 07:00 INR 1.06 (0.93-1.08) 03/03/17 07:00 APTT 26.1 Seconds (23.7-30.8) 03/03/17 07:00 - Constitutional Appears: Non-toxic, No Acute Distress - Head Exam Head Exam: NORMAL INSPECTION - Neck Exam Neck Exam: absent: Lymphadenopathy, Meningismus - Respiratory Exam Respiratory Exam: Decreased Breath Sounds - Cardiovascular Exam Cardiovascular Exam: +S1, +S2 - GI/Abdominal Exam GI & Abdominal Exam: Soft. absent: Tenderness Assessment and Plan - Assessment and Plan (Free Text) Plan: Assessment right lower extremity with skin and skin structure infection growing Staph aureus and Strep pyogenes and acute DVT DVT and PE S/P IVC filter placement obesity with BMI 32 Plan continue Zyvox (day 9); discussed with Dr. Bustos - recommend to continue Zyvox up to another 3-5 days
--- NOTE | 2017-03-06 00:54 | CP.PCM.DIS ---
Provider - Provider Date of Admission: 02/25/17 12:30 Attending physician: Luis Mercado MD Primary care physician: Luis Mercado MD Time Spent in preparation of Discharge (in minutes): 60 Hospital Course - Lab Results Lab Results: Micro Results 02/25/17 13:24 Blood-Venous Blood Culture - Final NO GROWTH AFTER 5 DAYS 02/25/17 13:24 Blood-Venous Gram Stain - Final TEST NOT PERFORMED 02/25/17 23:50 Leg - Right Gram Stain - Final 02/25/17 23:50 Leg - Right Wound Culture - Final Staphylococcus Aureus Streptococcus Pyogenes Grp A Most Recent Lab Values WBC 4.0 10^3/ul (4.5-11.0) L 03/05/17 07:00 RBC 4.09 10^6/uL (3.5-6.1) 03/05/17 07:00 Hgb 12.0 gm/dL (14.0-18.0) L 03/05/17 07:00 Hct 34.4 % (42.0-52.0) L 03/05/17 07:00 MCV 84.1 fL (80.0-105.0) 03/05/17 07:00 MCH 29.3 pg (25.0-35.0) 03/05/17 07:00 MCHC 34.9 g/dl (31.0-37.0) 03/05/17 07:00 RDW 13.2 % (11.5-14.5) 03/05/17 07:00 Plt Count 193 10^3/uL (120.0-450.0) 03/05/17 07:00 MPV 9.6 fl (7.0-11.0) 03/05/17 07:00 Gran % 47.1 % (50.0-68.0) L 03/05/17 07:00 Lymph % (Auto) 32.9 % (22.0-35.0) 03/05/17 07:00 [place] % (Auto) 16.7 % (1.0-6.0) H 03/05/17 07:00 Eos % (Auto) 2.8 % (1.5-5.0) 03/05/17 07:00 Baso % (Auto) 0.5 % (0.0-3.0) 03/05/17 07:00 Gran # 1.86 (1.4-6.5) 03/05/17 07:00 Lymph # 1.3 (1.2-3.4) 03/05/17 07:00 [place] # 0.7 (0.1-0.6) H 03/05/17 07:00 Eos # 0.1 (0.0-0.7) 03/05/17 07:00 Baso # 0.02 K/mm3 (0.0-2.0) 03/05/17 07:00 PT 11.5 Seconds (9.9-11.8) 03/03/17 07:00 INR 1.06 (0.93-1.08) 03/03/17 07:00 APTT 26.1 Seconds (23.7-30.8) 03/03/17 07:00 Sodium 136 mmol/L (132-148) 03/05/17 07:00 Potassium 3.6 mmol/L (3.6-5.0) 03/05/17 07:00 Chloride 102 mmol/L (95-110) 03/05/17 07:00 Carbon Dioxide 27 mmol/L (21-33) 03/05/17 07:00 Anion Gap 11 (10-20) 03/05/17 07:00 BUN 13 mg/dL (7-21) 03/05/17 07:00 Creatinine 0.9 mg/dL (0.5-1.4) 03/05/17 07:00 Est GFR ( Amer) > 60 03/05/17 07:00 Est GFR (Non-Af Amer) > 60 03/05/17 07:00 Random Glucose 95 mg/dL (70-110) 03/05/17 07:00 Calcium 8.5 mg/dL (8.4-10.5) 03/05/17 07:00 Total Bilirubin 0.4 mg/dL (0.2-1.3) 03/05/17 07:00 AST 64 U/L (15-59) H 03/05/17 07:00 ALT 47 U/L (7-56) 03/05/17 07:00 Alkaline Phosphatase 49 U/L (38-133) 03/05/17 07:00 Total Protein 7.8 g/dL (5.8-8.3) 03/05/17 07:00 Albumin 3.4 g/dL (3.0-4.8) 03/05/17 07:00 Globulin 4.5 gm/dL 03/05/17 07:00 Albumin/Globulin Ratio 0.8 (1.1-1.8) L 03/05/17 07:00 - Hospital Course Hospital Course: 1. Extensive DVT in right lower extremity. 2. Right leg cellulitis. 3. History of pulmonary embolism. 4. Hypercoagulable state. Hospital Course: admitted with DVT right ext, cellulitis. 4 cm ulcer on the right leg. Right leg edema and swelling decreased markedly. treated with IV antibiotic with Flagyl, Azactam and Zyvox, He has extensive DVT in both lower extremities, t/t with Lovenox anticoagulation. He was previously on Eliquis. He has Staph and strepto infection in the lower extremity, no surgical intervention was needed. Evalusted by surgery. REVIEW OF SYSTEMS: As per HPI. Rest of 12-point review of systems reviewed and negative. PHYSICAL EXAMINATION: GENERAL: Comfortable in bed, in no acute distress. VITAL SIGNS: Temperature 100.1, heart rate 74 per minute, respiratory rate 18 per minute, blood pressure 140/90, pulse ox is 99% on room air. HEENT: Normal. NECK: No lymphadenopathy. CHEST: Air entry present, equal bilateral. No added sound. CARDIOVASCULAR: S1, S2 normal. No murmur, no gallop. ABDOMEN: Soft, nontender, no hepatosplenomegaly. EXTREMITIES: Right lower extremity edema present. Left extremity, no swelling. SKIN: Changes on the right leg due to edema. Blackish discoloration of the skin. No petechia, no ecchymosis. CENTRAL NERVOUS SYSTEM: Alert, oriented x 3. No sensory motor deficit. SPINE: Normal. LABORATORY DATA: White count 4.5, hemoglobin 12.2, hematocrit 35.2, platelet count 186. INR 1.06, PT 11.5, PTT 26. Sodium 137, potassium 3.6, calcium 8.3, bilirubin 0.3, AST 62, ALT 48, alkaline phosphatase 51. Sodium 137, potassium 3.6, BUN 14, creatinine 0.9. Home meds : Zyvox 600 mg BID x 5 days, Lovenox 100 mg SQ 1 month. percocet prn for pain, wound care cond : stable. Dispo : home FU Dr. mercado in 1 week. Randa Bustos MD Discharge Exam - Head Exam Head Exam: NORMAL INSPECTION Discharge Plan - Discharge Medications Prescriptions: RX: Enoxaparin [Lovenox] 110 mg SC Q12H #30 syr RX: Linezolid [Zyvox] 600 mg PO Q12 5 Days RX: Mupirocin 2% Ointment [Bactroban Ointment] 1 gm TOP BID #1 - Follow Up Plan Condition: GUARDED Disposition: HOME/ ROUTINE Instructions: Deep Venous Thrombosis (DC) Additional Instructions: Follow up with Dr. mercado next week, please call [phone] for an appointment. Follow up with Dr. Umanzor in two weeks please call [phone] for an appointment. WOUND CARE Clean wound with normal saline, apply muporicin, telfa, 4 x 4, nubia and tavo wrap. Give yourself injection of lovenox on your belly, 2 times per day, pinch the fat tissue and give the injection.
== END 2017-03-05 19:44 | disposition home or self-care (01) | DRG 872 ==
LOC: ED 08:37 → ERH 12:30 → 3RNO 14:59
PROVIDERS: ADMIT Internal Medicine Nephrology; ATTEND Internal Medicine Nephrology
DX: A41.9 Sepsis, unspecified organism (principal); I82.411 Acute embolism and thrombosis of right femoral vein; I82.431 Acute embolism and thrombosis of right popliteal vein; L03.115 Cellulitis of right lower limb; D68.59 Other primary thrombophilia; L97.519 Non-pressure chronic ulcer of other part of right foot with unspecified severity; B95.0 Streptococcus, group A, as the cause of diseases classified elsewhere; B95.61 Methicillin susceptible Staphylococcus aureus infection as the cause of diseases classified elsewhere; E66.9 Obesity, unspecified; Z86.711 Personal history of pulmonary embolism; Z68.32 Body mass index [BMI] 32.0-32.9, adult; Z79.01 Long term (current) use of anticoagulants; Z88.0 Allergy status to penicillin; Z87.891 Personal history of nicotine dependence

== ENCOUNTER 2017-06-23 18:06 | Emergency (ER) | payer OTHER ==
[2017-06-23 18:25] VITALS: BMI 32.1
[2017-06-23 18:28] VITALS: RESP 18; TEMP 99.7
--- NOTE | 2017-06-23 20:05 | ED PDOC ---
Arrival/HPI - General Historian: Patient - History of Present Illness Time/Duration: Other (3 days) Symptom Course: Unchanged Quality: Other - General Chief Complaint: Lower Extremity Problem/Injury Time Seen by Provider: 06/23/17 18:58 - History of Present Illness Narrative History of Present Illness (Text): 06/23/17 20:02 A 51 year old male presents to the emergency department complaining of pain and swelling to left knee for the past 3 days. Patient denies any other joint pain, trauma, injury, fever, chills, nausea, vomiting, abdominal pain, chest pain, shortness of breath or any other complaints. Patient has no history of gout. (Julio Cesar SALAZAR,Angelica Lynch) Past Medical History - Provider Review Nursing Documentation Reviewed: Yes - Infectious Disease Hx of Infectious Diseases: None - Tetanus Immunization Tetanus Immunization: Unknown - Cardiac Hx Cardiac Disorders: Yes Hx Hypertension: Yes Hx Peripheral Edema: Yes (rle +2 pitting eema) Other/Comment: b/l lower extremity blood clots and b/l pe, had filter inserted 10 yrs ago, recurrent blood clots since age 41. Pt stated "Dr Oliveira told me I have lupus anticoagulant" - Pulmonary Hx Respiratory Disorders: Yes (pe b/l) - Neurological Hx Neurological Disorder: No - HEENT Hx HEENT Disorder: No - Renal Hx Renal Disorder: No - Endocrine/Metabolic Hx Endocrine Disorders: Yes - Hematological/Oncological Hx Blood Disorders: Yes (dvt in the past.,pe in past) - Integumentary Hx Dermatological Disorder: No Other/Comment: boil to outer lower right extremityextremely sensitive to touch asked not to remove bandaid to assess due to pain pt escribes it as as big as a 50 cent piece started out a pimple with drainage and depth, 2cm x 1cm open draining wound to outer lower right leg surrouonded by edematous dry skin extremely sensitive to touch it was abcessed 2 wks ago started to heal now opened again due to swelling skin warm to touch +2 edema pitting, stasis dermatitis rle - Musculoskeletal/Rheumatological Hx Falls: No - Gastrointestinal Hx Gastrointestinal Disorders: No - Genitourinary/Gynecological Hx Genitourinary Disorders: No - Psychiatric Hx Psychophysiologic Disorder: No Hx Depression: No Hx Emotional Abuse: No Hx Physical Abuse: No Hx Substance Use: No - Surgical History Other/Comment: insertion and removal of stents/filter ble. umbilical and left inguinal hernia sx 1998, vascular sx - Anesthesia Hx Anesthesia: Yes Hx Anesthesia Reactions: No Hx Malignant Hyperthermia: No - Suicidal Assessment Feels Threatened In Home Enviroment: No Family/Social History - Physician Review Nursing Documentation Reviewed: Yes Family/Social History: No Known Family HX Smoking Status: Former Smoker Hx Alcohol Use: No Hx Substance Use: No Hx Substance Use Treatment: No Allergies/Home Meds Allergies/Adverse Reactions: Allergies Penicillins Allergy (Verified 02/25/17 08:59) RASH Review of Systems - Physician Review All systems were reviewed & negative as marked: Yes - Review of Systems Constitutional: absent: Fevers, Night Sweats Respiratory: absent: SOB Cardiovascular: absent: Chest Pain Gastrointestinal: absent: Abdominal Pain, Nausea, Vomiting Musculoskeletal: Other (left knee pain and swelling) Physical Exam Vital Signs Reviewed: Yes Temperature: Febrile Blood Pressure: Normal Pulse: Tachycardic Respiratory Rate: Normal Appearance: Positive for: Well-Appearing, Non-Toxic, Comfortable Pain Distress: None Mental Status: Positive for: Alert and Oriented X 3 - Systems Exam Head: Present: Atraumatic, Normocephalic Pupils: Present: PERRL Extroacular Muscles: Present: EOMI Conjunctiva: Present: Normal Mouth: Present: Moist Mucous Membranes Neck: Present: Normal Range of Motion Respiratory/Chest: Present: Clear to Auscultation, Good Air Exchange. No: Respiratory Distress, Accessory Muscle Use Cardiovascular: Present: Regular Rate and Rhythm, Normal S1, S2. No: Murmurs Abdomen: Present: Normal Bowel Sounds. No: Tenderness, Distention, Peritoneal Signs Back: Present: Normal Inspection Upper Extremity: Present: Normal Inspection. No: Cyanosis, Edema Lower Extremity: Present: NORMAL PULSES, Normal ROM, Tenderness (Left knee tenderness), Temperature Abnormalties (Left knee warm to touch), Neurovascularly Intact, Other (moderate effusion in left knee). No: Edema, CALF TENDERNESS, Erythema, Deformity Neurological: Present: GCS=15, CN II-XII Intact, Speech Normal Skin: Present: Warm, Dry, Normal Color. No: Rashes Psychiatric: Present: Alert, Oriented x 3, Normal Insight, Normal Concentration Vital Signs Temp Pulse Resp BP Pulse Ox 06/23/17 20:27 96 H 18 110/72 98 06/23/17 18:27 99.7 F H 99 H 18 107/76 96 Medical Decision Making ED Course and Treatment: I was available for consultation during PA evaluation. The chart was reviewed by me, and I agree with disposition. The documented history was done by the physician coater carbon paper. The documented physical exam was done by the physician coater carbon paper. The documented procedures were done by the physician coater carbon paper. (Mauri Conleyiy) 06/23/17 20:02 Impression: A 51 year old male with left knee pain and swelling. Plan: -- Left knee xray -- Reassess and disposition Progress Notes: XR L knee : (+) effusion, (-) fracture, as read by PA Patient advised that official radiology read of XR is still pending and will call the patient if there is any discrepancy within 24 hours. XR results d/w the patient in great detail, notified of likely dx of knee effusion which needs further evaluation by an orthopedist. Advised to rest, ice and elevate the knee. Dago wrap applied. Instructed to follow up with an orthopedist in 1-2 days without fail. Advised to take medication as prescribed. Return to the emergency room at any time for any new or worsening symptoms. Patient states he fully agrees with and understands discharge instructions. States that he agrees with the plan and disposition. Verbalized and repeated discharge instructions and plan. I have given the patient opportunity to ask any additional questions. (Julio Cesar SALAZAR,Angelica Lynch) - RAD Interpretation Radiology Orders: 06/23/17 19:16 KNEE LEFT 2 VIEWS (AP & LAT) [RAD] Stat - PA / IT SENIOR ANALYST / Resident Statement MD/DO has reviewed & agrees with the documentation as recorded. - Scribe Statement The provider has reviewed the documentation as recorded by the Scribe - Scribe Statement Sophie Betancur Provider Scribe Attestation: All medical record entries made by the Scribe were at my direction and personally dictated by me. I have reviewed the chart and agree that the record accurately reflects my personal performance of the history, physical exam, medical decision making, and the department course for this patient. I have also personally directed, reviewed, and agree with the discharge instructions and disposition. (Angelica Harrell PA-C) Disposition/Present on Arrival - Present on Arrival Any Indicators Present on Arrival: Yes History of DVT/PE: Yes History of Uncontrolled Diabetes: No Urinary Catheter: No History of Decub. Ulcer: No History Surgical Site Infection Following: None - Disposition Have Diagnosis and Disposition been Completed?: Yes Disposition Time: 20:00 Patient Plan: Discharge - Disposition Diagnosis: Knee effusion, left Disposition: HOME/ ROUTINE Condition: STABLE Discharge Instructions (ExitCare): Swollen Knee Joint (ED) Print Language: KYRGYZ Additional Instructions: Thank you for letting us take care of you today. You were treated for L knee effusion. The emergency medical care you received today was directed at your acute symptoms. If you were prescribed any medication, please fill it and take as directed. It may take several days for your symptoms to resolve. Return to the Emergency Department if your symptoms worsen, do not improve, or if you have any other problems. Please contact your orthopedist in 2 days for re-evaluation and follow up / or call one of the physicians/clinics you have been referred to that are listed on the Patient Visit Information form that is included in your discharge packet. Bring any paperwork you were given at discharge with you along with any medications you are taking to your follow up visit. Our treatment cannot replace ongoing medical care by a primary care provider (PCP) outside of the emergency department. Thank you for allowing the [facility] team to be part of your care today. If you had an X-Ray : A Radiologist will review the ED reading if any change in treatment is needed we will contact you. Prescriptions: Meloxicam [Mobic] 15 mg PO DAILY #20 tab Tramadol HCl [Ultram] 50 mg PO TID #15 tablet Referrals: Julio Balbuena MD [Primary Care Provider] - Follow up with primary Leo Herrera III, MD [Medical Doctor] - Follow up with primary Forms: [facility] ([place]ali)
[2017-06-23 20:28] VITALS: BP 110/72; PULSE 96; O2SAT 98
--- NOTE | 2017-06-24 09:02 | RAD ---
PROCEDURE: Left Knee Radiographs. HISTORY: Pain. COMPARISON: None. FINDINGS: BONES: Normal. No fracture. JOINTS: Normal. No osteoarthritis. JOINT EFFUSION: Small OTHER FINDINGS: None IMPRESSION: No fracture. Small joint effusion. Nonspecific.
== END 2017-06-23 20:27 | disposition home or self-care (01) ==
LOC: ED 18:06
DX: M25.462 Effusion, left knee (principal)